=== PATIENT | female | born 1960 | race Caucasian/White ===

== ENCOUNTER 2016-12-02 09:06 | Emergency (ER) | payer OTHER ==
[2016-12-02 10:15] VITALS: BP 122/61
--- NOTE | 2016-12-02 16:57 | UC ---
Radha Shen Alok, scribed for Nette Ewing MD on 12/02/16 at 0949 . Respiratory Complaint HPI - HPI Summary HPI Summary: 56 y/o female presents to the with c/o coughing fits with dypnea, nasal congestion, and rhinorrhea with green sputum, beginning a week ago and worsening earlier today while at work prompting her visit to the today. Pt states she last took antibiotic Doxycycline about a month ago for similar symptoms the week of 10/24/16. Pt denies any fever or Hx of PNA. PMHx includes COPD years prior and pt does not do any treatment for COPD. - History of Current Complaint Chief Complaint: UCRespiratory Stated Complaint: COUGH SINUS ISSUE Time Seen by Provider: 12/02/16 09:45 Hx Obtained From: Patient ?: No Onset/Duration: Gradual Onset, Lasting Days, Still Present Timing: Constant Severity Initially: Moderate Severity Currently: Moderate Pain Intensity: 0 Pain Scale Used: 0-10 Numeric Character: Sputum Description: - Green Aggravating Factors: Nothing Alleviating Factors: Nothing Associated Signs And Symptoms: Positive: Dyspnea, Nasal Congestion, Sinus Discomfort. Negative: Fever - Risk Factors Pseudomonas Risk Factors: Chronic Lung Disease - Allergies/Home Medications Allergies/Adverse Reactions: Allergies Allergy/AdvReac Type Severity Reaction Status Date / Time Sulfa Antibiotics Allergy Intermediate hot/cold Verified 12/02/16 09:10 flashes/nausea PMH/Surg Hx/FS Hx/Imm Hx Endocrine History Of: Reports: Diabetes - II Denies: Thyroid Disease, Dyslipidemia Cardiovascular History Of: Denies: Cardiac Disorders, Hypertension Respiratory History Of: Reports: Bronchitis - IN THE PAST Denies: COPD, Asthma GI/ History Of: Denies: Gastroesophageal Reflux, Ulcer, Kidney Stones Neurological History Of: Denies: TIA, CVA, Dementia, Seizures, Migraine Psychological History Of: Denies: Anxiety, Depression, Bipolar Disorder, Schizophrenia, Post Traumatic Stress Disorder - Surgical History Surgical History: Yes Surgery Procedure, Year, and Place: csection x2, bilat cataract surgery. D&C 10/29/2015 - Family History Known Family History: Positive: Hypertension - mother, Diabetes - mother, Other - Yes - Lung Cancer (Father 55 y/o) Yes - Hep C (Mother's side) - Social History Occupation: Employed Full-time Alcohol Use: None Substance Use Type: None Smoking Status (MU): Former Smoker Type: Cigarettes Amount Used/How Often: 1/2 PPD Length of Time of Smoking/Using Tobacco: 30+ YEARS Have You Smoked in the Last Year: Yes When Did the Patient Quit Smoking/Using Tobacco: 08/2016 - Immunization History Most Recent Influenza Vaccination: Not UTD Most Recent Pneumonia Vaccination: NOT UTD Review of Systems Constitutional: Negative ENT: Sore Throat, Nasal Discharge Respiratory: Cough, Other - Dyspnea Cardiovascular: Negative All Other Systems Reviewed And Are Negative: Yes Physical Exam Triage Information Reviewed: Yes Appearance: No Pain Distress, Well-Nourished, Ill-Appearing Vital Signs: Initial Vital Signs Temp 97.2 F 12/02/16 09:13 Pulse 106 12/02/16 09:13 Resp 22 12/02/16 09:13 BP 151/77 12/02/16 09:13 Pulse Ox 98 12/02/16 09:13 Elevated BP and Tachycardia Noted. BP and pulse improved at discharge Vital Signs Reviewed: Yes Eyes: Positive: Conjunctiva Clear ENT: Positive: Normal ENT inspection, Pharynx normal, TMs normal. Negative: Muffled/hoarse voice Neck: Positive: Supple, Nontender, No Lymphadenopathy Respiratory: Positive: No respiratory distress, Decreased breath sounds. Negative: Wheezing Cardiovascular: Positive: No Murmur, Pulses Normal, Brisk Capillary Refill, Tachycardia Abdomen Description: Positive: Nontender, Soft Musculoskeletal: Positive: Strength Intact, ROM Intact Neurological: Positive: Alert, Muscle Tone Normal Psychological Exam: Normal Skin Exam: Normal UC Diagnostic Evaluation - Laboratory O2 Sat by Pulse Oximetry: 98 Respiratory Course/Dx - Course Course Of Treatment: istop consulted: no search items - Differential Dx/Diagnosis Differential Diagnosis/HQI/PQRI: Bronchitis - Acute, Lower Resp Infection, Pulmonary Embolism Provider Diagnoses: Primary diagnosis: Acute bronchitis. Secondary Diagnosis: High blood pressure without diagnosis of hypertension Discharge - Discharge Plan Condition: Stable Disposition: HOME Prescriptions: Albuterol HFA INHALER* [Ventolin HFA Inhaler*] 2 puff INH Q4H PRN #1 mdi PRN Reason: Cough Azithromycin TAB* [Zithromax TAB (Z-CANDIDA) 250 mg #6 tabs] 2 tab PO .TODAY, THEN 1 DAILY #1 candida guaiFENesin/CODIEN 100MG-10MG* [Robitussin AC 100Mg-10Mg*] 5 ml PO Q4H PRN #50 ml MDD 20ml PRN Reason: Cough predniSONE TAB* [Deltasone TAB*] 40 mg PO DAILY #10 tab Patient Education Materials: Acute Bronchitis (ED) Forms: *Work Release Referrals: Vernon Fajardo MD [Primary Care Provider] - 1 Week (for BP recheck and bronchitis eval ) The documentation as recorded by the Radha maza Alok accurately reflects the service I personally performed and the decisions made by , Nette Ewing MD.
== END 2016-12-02 10:17 | disposition home or self-care (01) ==
LOC: UCEAST 09:06
DX: J20.9 Acute bronchitis, unspecified (principal); R03.0 Elevated blood-pressure reading, without diagnosis of hypertension; Z98.42 Cataract extraction status, left eye; Z98.41 Cataract extraction status, right eye; Z88.2 Allergy status to sulfonamides; Z87.891 Personal history of nicotine dependence
CPT/HCPCS: 99212; G0463

== ENCOUNTER 2018-11-02 09:30 | Emergency (ER) | payer OTHER ==
--- NOTE | 2018-11-02 09:50 | ED ---
HPI Chest Pain - HPI Summary HPI Summary: Patient is a 58-year-old female smoker presenting to the ED with cough, congestion 1 week. She states she gets bronchitis proximal and once per year. Denies any fevers, sweats, chills. Cough is nonproductive. Denies any chest pain. She endorses a mild shortness of breath, worse with ambulation and exertion. Patient is a diabetic and takes metformin daily, however denies any other medications. She denies any urinary symptoms, abdominal pain, nausea, vomiting, diarrhea, constipation. She states she did not get the flu or Pneumovax this year. - History of Current Complaint Chief Complaint: EDChestPainROMI Time Seen by Provider: 11/02/18 09:48 Hx Obtained From: Patient Onset/Duration: Started Hours Ago Timing: Constant Initial Severity: Moderate Current Severity: Moderate Pain Intensity: 8 Pain Scale Used: 0-10 Numeric Aggravating Factor(s): Exertion Alleviating Factor(s): Rest Associated Signs and Symptoms: Positive: Nonproductive Cough. Negative: Chest Pain, Vision Changes, Anxiety, Recent Stress, Chills, Lightheadedness, Nausea, Nasal Congestion, Hoarseness, Sinus Discomfrot - Risk Factors Pulmonary Embolism Risk Factors: Smoking TAD Risk Factors: Smoking AMI/ACS Risk Factors: Smoking - Additional Pertinent History Primary Care Physician: Dr Fajardo. - Allergy/Home Medications Allergies/Adverse Reactions: Allergies Allergy/AdvReac Type Severity Reaction Status Date / Time Sulfa (Sulfonamide Allergy Nausea Verified 11/02/18 09:45 Antibiotics) PMH/Surg Hx/FS Hx/Imm Hx Previously Healthy: Yes Endocrine/Hematology History: Reports: Hx Diabetes - II Denies: Hx Thyroid Disease Cardiovascular History: Denies: Hx Hypertension, Other Cardiovascular Problems/Disorders Respiratory History: Denies: Hx Asthma, Hx Chronic Obstructive Pulmonary Disease (COPD) GI History: Denies: Hx Ulcer, Other GI Disorders History: Denies: Hx Kidney Stones Musculoskeletal History: Denies: Hx Arthritis, Other Musculoskeletal History Sensory History: Reports: Hx Cataracts - SUSANA, Hx Contacts or Glasses - GLASSES Denies: Hx Hearing Aid Opthamlomology History: Reports: Hx Cataracts - SUSANA, Hx Contacts or Glasses - GLASSES Neurological History: Denies: Hx Dementia, Hx Migraine, Hx Seizures, Hx Transient Ischemic Attacks (TIA), Other Neuro Impairments/Disorders Psychiatric History: Denies: Hx Anxiety, Hx Depression, Hx Schizophrenia, Hx Bipolar Disorder - Surgical History Surgery Procedure, Year, and Place: csection x2, bilat cataract surgery. D&C 10/29/2015 Hx Anesthesia Reactions: No Infectious Disease History: No Infectious Disease History: Reports: Hx Shingles - years ago Denies: Hx Clostridium Difficile, Hx Hepatitis, Hx Human Immunodeficiency Virus (HIV), Hx of Known/Suspected MRSA, Hx Tuberculosis, Hx Known/Suspected VRE , Hx Known/Suspected VRSA, History Other Infectious Disease, Traveled Outside the [place] in Last 30 Days - Family History Known Family History: Positive: Hypertension - mother, Diabetes - mother, Other - Yes - Lung Cancer (Father 55 y/o) Yes - Hep C (Mother's side) - Social History Alcohol Use: None Substance Use Type: Reports: None Smoking Status (MU): Former Smoker Type: Cigarettes Amount Used/How Often: 1/2 PPD Length of Time of Smoking/Using Tobacco: 30+ YEARS Have You Smoked in the Last Year: Yes Review of Systems Constitutional: Negative Negative: Fever, Chills, Fatigue, Skin Diaphoresis Negative: Palpitations, Chest Pain Positive: Shortness Of Breath, Cough Genitourinary: Negative Positive: no symptoms reported, see HPI Musculoskeletal: Negative Skin: Negative Negative: Headache, Weakness, Paresthesia, Numbness Negative: Anxious, Depressed All Other Systems Reviewed And Are Negative: Yes Physical Exam Triage Information Reviewed: Yes Vital Signs On Initial Exam: Initial Vitals Temp Pulse Resp BP Pulse Ox 99.9 F 106 17 155/70 94 11/02/18 09:42 11/02/18 09:42 11/02/18 09:42 11/02/18 09:42 11/02/18 09:42 Vital Signs Reviewed: Yes Appearance: Positive: Well-Appearing, Well-Nourished Skin: Positive: Skin Color Reflects Adequate Perfusion Head/Face: Positive: Normal Head/Face Inspection Eyes: Positive: EOMI, Conjunctiva Clear Neck: Positive: Supple, Nontender, No Lymphadenopathy Respiratory/Lung Sounds: Positive: Clear to Auscultation, Breath Sounds Present Cardiovascular: Positive: RRR, Pulses are Symmetrical in both Upper and Lower Extremities Musculoskeletal: Positive: Strength/ROM Intact Neurological: Positive: Normal, Sensory/Motor Intact, Speech Normal Psychiatric: Positive: Affect/Mood Appropriate AVPU Assessment: Alert Diagnostics - Vital Signs Vital Signs Temp Pulse Resp BP Pulse Ox 11/02/18 09:42 99.9 F 106 17 155/70 94 - Laboratory Result Diagrams: 11/02/18 10:05 11/02/18 10:05 Lab Statement: Any lab studies that have been ordered have been reviewed, and results considered in the medical decision making process. Chest Pain Course/Dx - Course Course Of Treatment: On physical examination, lungs are clear to auscultation bilaterally, RRR. Patient is nontoxic in appearing, however has a cough. Vital signs are stable. Patient is evaluated for cough and congestion times one week. Chest x-ray obtained. This was negative for any acute cardiopulmonary findings, however some interstitial markings were presenting a COPD exacerbation. Labs obtained are all WNL. Patient is given prednisone 50 mg once daily 5 days, azithromycin, 2 tablets today and then 1 tablet daily 5 days. She is also given albuterol inhaler and Tessalon Perles for symptoms. - Diagnoses Provider Diagnoses: Cough Discharge - Sign-Out/Discharge Documenting (check all that apply): Patient Departure Patient Received Moderate/Deep Sedation with Procedure: No - Discharge Plan Condition: Stable Disposition: HOME Prescriptions: Albuterol HFA INHALER* [Ventolin HFA Inhaler*] 1 puff INH Q4H PRN #1 mdi PRN Reason: Shortness Of Breath Azithromycin TAB* [Zithromax TAB (Z-CANDIDA) 250 mg #6 tabs] 2 tab PO .TODAY, THEN 1 DAILY #1 candida Benzonatate CAP* [Tessalon CAP*] 100 mg PO TID #21 cap predniSONE TAB* [Deltasone TAB*] 50 mg PO DAILY #5 tab MDD 1 Patient Education Materials: Acute Bronchitis (ED) Referrals: Vernon Fajardo MD [Primary Care Provider] - Additional Instructions: Prednisone 50 mg once daily 5 days, take in the morning Azithromycin, 2 tabs today and then 1 tablet daily 4 days Use the albuterol inhaler as needed for shortness of breath Robitussin [id number] as needed for cough Tessalon Perles up to 4 times daily for cough - Billing Disposition and Condition Condition: STABLE Disposition: Home
[2018-11-02] MEDS ORDERED: guaiFENesin/CODIEN 100MG-10MG* 5 ML UDC PO ONE (10:00)
[2018-11-02 10:17] LABS: ABS Basophils 0.1 10^3/ul (0-0.2); ABS Eosinophils 0 10^3/ul (0-0.6); ABS Lymphocytes 0.8 10^3/ul (1.0-4.8); ABS Monocytes 0.7 10^3/ul (0-0.8); ABS Neutrophils 4.9 10^3/ul (1.5-7.7); ABS Nucleated RBC 0 10^3/ul; Eosinophil % 0.1 %; Hematocrit 44 % (35-47); Hemoglobin 14.9 g/dl (12.0-16.0); Lymphocyte % 12.2 %; Mean Corpuscular HGB Conc 34 g/dl (31-36); Mean Corpuscular Hemoglobin 28 pg (27-31); Mean Corpuscular Volume 83 fL (80-97); Mean Platelet Volume 6.7 fL (7.4-10.4); Nucleated Red Blood Cells % 0.1; Platelet Count 204 10^3/ul (150-450); Red Blood Count 5.25 10^6/ul (4.00-5.40); Red Cell Distribution Width 15 % (10.5-15); White Blood Count 6.6 10^3/ul (3.5-10.8)
[2018-11-02 10:22] LABS: INR 0.94 (0.77-1.02)
[2018-11-02 10:36] LABS: Albumin/Globulin Ratio 1.1 (1-3); BUN/Creatinine Ratio 15.9 (8-20); EGFR African American 105.4 (>60); EGFR Non-African American 87.1 (>60); Globulin 3.5 g/dL (2-4); Magnesium 1.7 mg/dL (1.9-2.7); Potassium 4.1 mmol/L (3.5-5.0); Total Bilirubin 0.7 mg/dL (0.2-1.0); Total Protein 7.5 g/dL (6.4-8.9)
[2018-11-02 11:22] VITALS: BP 173/75
== END 2018-11-02 11:22 | disposition home or self-care (01) ==
LOC: ED 09:30
DX: R05 Cough (principal); Z87.891 Personal history of nicotine dependence; E11.9 Type 2 diabetes mellitus without complications; Z88.2 Allergy status to sulfonamides; Z79.84 Long term (current) use of oral hypoglycemic drugs
CPT/HCPCS: 36415; 71046; 80053; 82550; 83605; 83735; 84484; 85025; 85610; 93005; 99282; A9270-GY

== ENCOUNTER 2019-01-23 17:07 | Emergency (ER) | payer OTHER ==
[2019-01-23 17:16] VITALS: BP 140/61
--- NOTE | 2019-01-23 17:21 | UC ---
Throat Pain/Nasal Martinez HPI - HPI Summary HPI Summary: 58 yo female presents with sinus pain/pressure/congestion for the last 4-5 days with a productive cough the last 2 days. She is a former smoker. She has not been taking anything OTC for her symptoms as she cannot afford these currently. She denies fever, chills, sore throat, SOB, chest pain. - History of Current Complaint Chief Complaint: UCRespiratory Stated Complaint: SINUS AND CONGESTION Time Seen by Provider: 01/23/19 17:21 Hx Obtained From: Patient Onset/Duration: Gradual Onset Severity: Severe Pain Intensity: 9 Pain Scale Used: 0-10 Numeric - Allergies/Home Medications Allergies/Adverse Reactions: Allergies Allergy/AdvReac Type Severity Reaction Status Date / Time Sulfa (Sulfonamide Allergy Nausea Verified 01/23/19 17:16 Antibiotics) PMH/Surg Hx/FS Hx/Imm Hx Endocrine History: Diabetes Respiratory History: COPD, Asthma - Surgical History Surgical History: Yes Surgery Procedure, Year, and Place: csection x2, bilat cataract surgery. D&C 10/29/2015 - Family History Known Family History: Positive: Hypertension - mother, Diabetes - mother, Other - Yes - Lung Cancer (Father 55 y/o) Yes - Hep C (Mother's side) - Social History Alcohol Use: None Substance Use Type: None Smoking Status (MU): Former Smoker Type: Cigarettes Amount Used/How Often: 1/2 PPD Length of Time of Smoking/Using Tobacco: 30+ YEARS Have You Smoked in the Last Year: Yes When Did the Patient Quit Smoking/Using Tobacco: 08/2016 - Immunization History Most Recent Influenza Vaccination: Not UTD Most Recent Pneumonia Vaccination: NOT UTD Review of Systems All Other Systems Reviewed And Are Negative: Yes Constitutional: Positive: Negative Skin: Positive: Negative Eyes: Positive: Negative ENT: Positive: Nasal Discharge, Sinus Congestion, Sinus Pain/Tenderness Respiratory: Positive: Cough Cardiovascular: Positive: Negative Gastrointestinal: Positive: Negative Neurovascular: Positive: Negative Neurological: Positive: Negative Psychological: Positive: Negative Physical Exam - Summary Physical Exam Summary: GENERAL: NAD. WDWN. No pain distress. SKIN: No rashes, sores, lesions, or open wounds. HEENT: Head: AT/NC Eyes: EOM intact. Conjunctiva clear without inflammation or discharge. Ears: Hearing grossly normal. TMs intact, no bulging, erythema, or edema. Nose: Nasal mucosa mildly swollen and erythematous with yellow/ clear discharge. TTP maxillary and frontal sinus. Positive post nasal drip Throat: Posterior oropharynx without exudates, erythema, or tonsillar enlargement. Uvula midline. NECK: Supple. Nontender. No lymphadenopathy. CHEST: Mild wheezing throughout. No accessory muscle use. Breathing comfortably and in no distress. CV: RRR. Without m/r/g. Pulses intact. NEURO: Alert. PSYCH: Age appropriate behavior. Triage Information Reviewed: Yes Vital Signs: Initial Vital Signs Temp 97.4 F 01/23/19 17:10 Pulse 98 01/23/19 17:10 Resp 18 01/23/19 17:10 BP 140/61 01/23/19 17:10 Pulse Ox 98 01/23/19 17:10 Vital Signs Reviewed: Yes Throat Pain/Nasal Course/Dx - Course Course Of Treatment: Sinusitis. Bronchitis. Encouraged to use at home albuterol inhaler and, given her DM2 and smoking hx, will rx for augmentin at this time. - Differential Dx/Diagnosis Provider Diagnosis: Sinusitis, Bronchitis Discharge - Sign-Out/Discharge Documenting (check all that apply): Patient Departure All imaging exams completed and their final reports reviewed: No Studies - Discharge Plan Condition: Stable Disposition: HOME Prescriptions: Amoxicillin/Clavulanate TAB* [Augmentin TAB 875*] 875 mg PO BID #14 tab Patient Education Materials: Sinusitis (ED), Acute Bronchitis (ED) Referrals: Vernon Fajardo MD [Primary Care Provider] - Additional Instructions: If you develop a fever, shortness of breath, chest pain, new or worsening symptoms - please call your PCP or go to the ED immediately. Your blood pressure was high at todays visit. Please see your primary provider within 4 weeks for recheck and re-evaluation. - Billing Disposition and Condition Condition: STABLE Disposition: Home
--- NOTE | 2019-01-26 11:15 | UC ---
- Progress Note Progress Note: I RETURNED PATIENTS PHONE CALL. NAME AND DATE OF VERIFIED. SHE REPORTS HAVING COPIOUS WATERY DIARRHEA SINCE STARTING AUGMENTIN 2 DAYS AGO. IS REQUESTING AN ALTERNATE ANTIBIOTIC. PATIENT'S PROGRESS NOTE FROM HER VISIT REVIEWED. WILL CHANGE FROM AUGMENTIN TO REGULAR AMOXICILLIN 3 TIMES A DAY. PRESCRIPTION SENT TO [facility]. Course/Dx - Diagnoses Provider Diagnoses: Sinusitis, Bronchitis Discharge - Sign-Out/Discharge Documenting (check all that apply): Post-Discharge Follow Up All imaging exams completed and their final reports reviewed: No Studies - Discharge Plan Condition: Stable Disposition: HOME Prescriptions: Amoxicillin PO (*) [Amoxicillin 500 MG CAP*] 500 mg PO TID #21 cap Patient Education Materials: Sinusitis (ED), Acute Bronchitis (ED) Referrals: Vernon Fajardo MD [Primary Care Provider] - Additional Instructions: If you develop a fever, shortness of breath, chest pain, new or worsening symptoms - please call your PCP or go to the ED immediately. Your blood pressure was high at todays visit. Please see your primary provider within 4 weeks for recheck and re-evaluation. - Billing Disposition and Condition Condition: STABLE Disposition: Home
== END 2019-01-23 17:35 | disposition home or self-care (01) ==
LOC: UCEAST 17:07
DX: J32.9 Chronic sinusitis, unspecified (principal); J40 Bronchitis, not specified as acute or chronic; E11.9 Type 2 diabetes mellitus without complications; J44.9 Chronic obstructive pulmonary disease, unspecified; Z88.2 Allergy status to sulfonamides; Z87.891 Personal history of nicotine dependence
CPT/HCPCS: 99212; G0463

== ENCOUNTER 2020-11-27 09:30 | Inpatient (IN) ==
[2020-11-27] MEDS ORDERED: Ondansetron 4 mg VIAL 2 MG/ML 2 ml VIAL IV ONE (10:01)
[2020-11-27] MEDS ORDERED: Morphine 4 MG/ML VIAL (1 ml) IV ONE (10:01)
[2020-11-27 10:32] LABS: ABS Lymphocytes 0.8 10^3/ul (1.0-4.8); ABS Monocytes 0.5 10^3/ul (0-0.8); Eosinophil % 0.1 %; Hematocrit 21 % (35-47); Lymphocyte % 5.6 %; Mean Corpuscular HGB Conc 29 g/dL (31-36); Mean Corpuscular Hemoglobin 16 pg (27-31); Mean Corpuscular Volume 56 fL (80-97); Mean Platelet Volume 7.9 fL (7.4-10.4); Platelet Count 360 10^3/uL (150-450); Red Blood Count 3.69 10^6 /uL (3.70-4.87); Red Cell Distribution Width 19 % (10-15); White Blood Count 14.3 10^3/uL (3.5-10.8)
[2020-11-27 10:47] LABS: ALT 5 U/L (7-52); AST 7 U/L (13-39); Albumin 3.8 g/dL (3.2-5.2); Albumin/Globulin Ratio 1.2 (1-3); Alkaline Phosphatase 53 U/L (34-104); Anion Gap 6 mmol/L (2-11); Blood Urea Nitrogen 12 mg/dL (6-24); C Reactive Protein 50.88 mg/L (<8.01); CO2 Carbon Dioxide 25 mmol/L (22-32); Calcium 8.5 mg/dL (8.6-10.3); Chloride 103 mmol/L (101-111); EGFR African American 88.2 (>60); EGFR Non-African American 72.9 (>60); Globulin 3.2 g/dL (2-4); Glucose 158 mg/dL (70-100); Lipase < 10 U/L (11.0-82.0); Magnesium 1.8 mg/dL (1.9-2.7); Potassium 4.4 mmol/L (3.5-5.0); Sodium 134 mmol/L (135-145)
[2020-11-27 11:13] LABS: Microcytosis 3+
[2020-11-27 11:14] LABS: Polychromasia 1+
[2020-11-27] MEDS ORDERED: Iodixanol (CONTRAST) 320 MG/ML 100 ML SDV IV ONE (11:27)
[2020-11-27] MEDS ORDERED: Magnesium Sulfate 2 gm BAG 2 GM/50 ML BAG IVPB ONE (11:28)
[2020-11-27] MEDS ORDERED: Famotidine IV 10 MG/ML 2 ml VIAL (20 mg) IV SLOW PU ONE (12:10)
[2020-11-27] MEDS ORDERED: Piperacillin/Tazobac ADVAN 3.375 GM in NS 0.9% 100 ml BAG 100 ML IV ONE ×2 (12:19→14:06)
[2020-11-27] MEDS ORDERED: NS 0.9% 1000 ml BAG 1,000 ML IV ONE (12:20)
[2020-11-27] MEDS ORDERED: NS 0.9% 1000 ml BAG 1,000 ML IV SCH (14:00)
[2020-11-27] MEDS ORDERED: Heparin 5000 UNITS/ML 1 mL VIAL SUBCUT SCH (14:00)
[2020-11-27] MEDS ORDERED: Ondansetron 4 mg VIAL 2 MG/ML 2 ml VIAL IV PRN (14:14)
[2020-11-27] MEDS ORDERED: Dextrose 50% Syringe 50 ml 25 GM/50 ML SYRINGE IV PUSH PRN (14:55)
[2020-11-27] MEDS ORDERED: Zosyn per Pharmacy NOTE FOLLOW UP SCH (15:00)
[2020-11-27] MEDS ORDERED: Albuterol/Ipratropium NEB.SOL (2.5/0.5 MG) 3 ML NEB.SOLN INH PRN (15:02)
[2020-11-27] MEDS: ZOSYN 3.375 GM Q8H per EXTENDED INFUSION IV SCH (18:39)
[2020-11-27 19:11] LABS: TSH Ultra Thyroid Stim Horm 1.11 mcIU/mL (0.34-5.60)
[2020-11-27 19:25] LABS: Hematocrit 27 % (35-47); Hemoglobin 8.1 g/dL (12.0-16.0)
[2020-11-28 00:59] LABS: Hematocrit 27 % (35-47)
[2020-11-28] MEDS: ZOSYN 3.375 GM Q8H per EXTENDED INFUSION IV SCH ×3 (01:33→17:30)
[2020-11-28 07:05] LABS: Total Iron Binding Capacity 491 mcg/dL (250-450); Transferrin 351 mg/dL (203-362)
[2020-11-28 07:09] LABS: % Iron Saturation 4 % (15-55); Iron < 20 ug/dL (50-212); Unsaturated Iron Binding < 476 ug/dL
[2020-11-28 07:19] LABS: Ferritin 40.9 ng/mL (11-307)
[2020-11-28] MEDS: Enoxaparin 40 MG/0.4 ML SYR SUBCUT SCH (08:56)
[2020-11-28 09:57] LABS: BUN/Creatinine Ratio 18.1 (8-20); Calcium 8.2 mg/dL (8.6-10.3); EGFR African American 99.6 (>60); EGFR Non-African American 82.3 (>60); Potassium 4.3 mmol/L (3.5-5.0)
[2020-11-28 10:05] LABS: Hematocrit 28 % (35-47); Hemoglobin 8.2 g/dL (12.0-16.0); Mean Corpuscular HGB Conc 29 g/dL (31-36); Mean Corpuscular Hemoglobin 19 pg (27-31); Mean Corpuscular Volume 65 fL (80-97); Platelet Count 304 10^3/uL (150-450); Red Blood Count 4.36 10^6 /uL (3.70-4.87); White Blood Count 19.8 10^3/uL (3.5-10.8)
[2020-11-28 10:39] LABS: ABS Basophils 0.1 10^3/ul (0-0.2); ABS Monocytes 0.6 10^3/ul (0-0.8); ABS Neutrophils 18.2 10^3/ul (1.5-7.7); Lymphocyte % 4.9 %; Red Cell Distribution Width 27 % (10-15)
[2020-11-28 10:40] LABS: Microcytosis 3+
[2020-11-28 10:41] LABS: Polychromasia 1+
[2020-11-28 11:20] LABS: Vitamin B12 471 pg/mL (180-914)
[2020-11-29] MEDS: ZOSYN 3.375 GM Q8H per EXTENDED INFUSION IV SCH ×3 (02:27→17:30)
[2020-11-29 06:09] LABS: Urine Appearance Cloudy; Urine Bilirubin Negative (Negative); Urine Blood Negative (Negative); Urine Color Amber; Urine Glucose Negative (Negative); Urine Ketones Negative (Negative); Urine Nitrite Negative (Negative); Urine Protein 2+(100 mg/dL) (Negative); Urine Specific Gravity 1.029 (1.010-1.030); Urine Urobilinogen Negative (Negative)
[2020-11-29 06:22] LABS: Urine Bacteria 1+ (Absent); Urine Red Blood Cell 3+(>10/hpf) (Absent); Urine Squamous Epithelial Cell Present (Absent); Urine White Blood Cell 3+(>20/hpf) (Absent)
[2020-11-29 06:27] LABS: ABS Basophils 0.1 10^3/ul (0-0.2); ABS Lymphocytes 0.8 10^3/ul (1.0-4.8); Eosinophil % 0.1 %; Hematocrit 26 % (35-47); Hemoglobin 7.9 g/dL (12.0-16.0); Lymphocyte % 4.7 %; Mean Corpuscular HGB Conc 30 g/dL (31-36); Mean Corpuscular Hemoglobin 19 pg (27-31); Mean Corpuscular Volume 62 fL (80-97); Platelet Count 387 10^3/uL (150-450); Red Blood Count 4.26 10^6 /uL (3.70-4.87); Red Cell Distribution Width 28 % (10-15); White Blood Count 16.9 10^3/uL (3.5-10.8)
[2020-11-29 07:01] LABS: BUN/Creatinine Ratio 20.8 (8-20); Calcium 8.4 mg/dL (8.6-10.3); EGFR African American 92.2 (>60); EGFR Non-African American 76.2 (>60); Potassium 3.7 mmol/L (3.5-5.0)
[2020-11-29] MEDS: Enoxaparin 40 MG/0.4 ML SYR SUBCUT SCH (08:18)
[2020-11-30] MEDS: ZOSYN 3.375 GM Q8H per EXTENDED INFUSION IV SCH ×3 (01:21→17:13)
[2020-11-30] MEDS: Enoxaparin 40 MG/0.4 ML SYR SUBCUT SCH (08:58)
[2020-11-30 10:18] LABS: ABS Eosinophils 0.1 10^3/ul (0-0.6); ABS Lymphocytes 0.9 10^3/ul (1.0-4.8); ABS Neutrophils 11.3 10^3/ul (1.5-7.7); Eosinophil % 0.5 %; Hematocrit 25 % (35-47); Hemoglobin 7.4 g/dL (12.0-16.0); Lymphocyte % 6.5 %; Mean Corpuscular HGB Conc 30 g/dL (31-36); Mean Corpuscular Hemoglobin 19 pg (27-31); Mean Corpuscular Volume 62 fL (80-97); Mean Platelet Volume 6.2 fL (7.4-10.4); Platelet Count 404 10^3/uL (150-450); Red Blood Count 4.01 10^6 /uL (3.70-4.87); Red Cell Distribution Width 27 % (10-15); White Blood Count 13.3 10^3/uL (3.5-10.8)
[2020-11-30 10:32] LABS: Calcium 8.1 mg/dL (8.6-10.3); EGFR African American 112.1 (>60); EGFR Non-African American 92.7 (>60); Potassium 3.6 mmol/L (3.5-5.0)
[2020-11-30 10:52] LABS: Microcytosis 2+
[2020-11-30] MEDS ORDERED: Iohexol 300 (CONTRAST) 10 ML SDV IV ONE (15:34)
[2020-12-01] MEDS: ZOSYN 3.375 GM Q8H per EXTENDED INFUSION IV SCH ×3 (01:19→18:19)
[2020-12-01 07:28] LABS: ABS Lymphocytes 0.8 10^3/ul (1.0-4.8); ABS Monocytes 0.8 10^3/ul (0-0.8); ABS Neutrophils 6.9 10^3/ul (1.5-7.7); Eosinophil % 0.5 %; Hematocrit 24 % (35-47); Hemoglobin 7.3 g/dL (12.0-16.0); Mean Corpuscular HGB Conc 30 g/dL (31-36); Mean Corpuscular Hemoglobin 19 pg (27-31); Mean Corpuscular Volume 62 fL (80-97); Mean Platelet Volume 5.8 fL (7.4-10.4); Platelet Count 344 10^3/uL (150-450); Red Blood Count 3.89 10^6 /uL (3.70-4.87); Red Cell Distribution Width 27 % (10-15); White Blood Count 8.5 10^3/uL (3.5-10.8)
[2020-12-01 07:36] LABS: BUN/Creatinine Ratio 17.2 (8-20); Calcium 8.2 mg/dL (8.6-10.3); EGFR African American 114.1 (>60); EGFR Non-African American 94.3 (>60); Potassium 3.5 mmol/L (3.5-5.0)
[2020-12-01] MEDS: Enoxaparin 40 MG/0.4 ML SYR SUBCUT SCH (10:20)
[2020-12-01] MEDS ORDERED: PEG 3000 GI LAVAGE 1 GALLON PO ONE ×2 (13:19→16:00)
[2020-12-02] MEDS: ZOSYN 3.375 GM Q8H per EXTENDED INFUSION IV SCH ×3 (02:00→18:12)
[2020-12-02 06:21] LABS: ABS Eosinophils 0.1 10^3/ul (0-0.6); ABS Monocytes 0.7 10^3/ul (0-0.8); ABS Neutrophils 6.5 10^3/ul (1.5-7.7); Eosinophil % 1.2 %; Hematocrit 25 % (35-47); Hemoglobin 7.5 g/dL (12.0-16.0); Lymphocyte % 12.1 %; Mean Corpuscular HGB Conc 31 g/dL (31-36); Mean Corpuscular Hemoglobin 19 pg (27-31); Mean Corpuscular Volume 62 fL (80-97); Mean Platelet Volume 6.1 fL (7.4-10.4); Platelet Count 422 10^3/uL (150-450); Red Blood Count 3.97 10^6 /uL (3.70-4.87); Red Cell Distribution Width 27 % (10-15); White Blood Count 8.3 10^3/uL (3.5-10.8)
[2020-12-02 06:41] LABS: BUN/Creatinine Ratio 13.8 (8-20); Calcium 8.2 mg/dL (8.6-10.3); EGFR African American 127.9 (>60); EGFR Non-African American 105.7 (>60); Potassium 3.3 mmol/L (3.5-5.0)
[2020-12-02 08:41] LABS: Magnesium 2.1 mg/dL (1.9-2.7)
[2020-12-02] MEDS ORDERED: Potassium Chlor 10 meq TAB PO ONE (08:46)
[2020-12-02] MEDS: Enoxaparin 40 MG/0.4 ML SYR SUBCUT SCH (10:17)
[2020-12-02] MEDS ORDERED: Midazolam 10 mg/10 ml VIAL 1 mg/ml 10 ml VIAL (10 mg) ONE (12:51)
[2020-12-02] MEDS ORDERED: fentaNYL 100 mcg/2 ml 50 MCG/ML VIAL ONE (12:51)
[2020-12-02] MEDS ORDERED: Lorazepam PYXIS KEY PRN (18:02)
[2020-12-02] MEDS ORDERED: LORazepam 2 mg VIAL 1 ml IV PUSH ONE (18:02)
[2020-12-03] MEDS: ZOSYN 3.375 GM Q8H per EXTENDED INFUSION IV SCH ×3 (01:58→17:49)
[2020-12-03 06:34] LABS: ABS Eosinophils 0.1 10^3/ul (0-0.6); ABS Lymphocytes 1.3 10^3/ul (1.0-4.8); ABS Monocytes 0.8 10^3/ul (0-0.8); ABS Neutrophils 7.7 10^3/ul (1.5-7.7); Eosinophil % 1.3 %; Hematocrit 23 % (35-47); Hemoglobin 6.9 g/dL (12.0-16.0); Lymphocyte % 13.1 %; Mean Corpuscular HGB Conc 31 g/dL (31-36); Mean Corpuscular Hemoglobin 19 pg (27-31); Mean Corpuscular Volume 61 fL (80-97); Mean Platelet Volume 5.9 fL (7.4-10.4); Platelet Count 388 10^3/uL (150-450); Red Blood Count 3.66 10^6 /uL (3.70-4.87); Red Cell Distribution Width 26 % (10-15)
[2020-12-03 06:40] LABS: BUN/Creatinine Ratio 18.5 (8-20); Calcium 8.1 mg/dL (8.6-10.3); EGFR African American 138.9 (>60); EGFR Non-African American 114.8 (>60); Potassium 3.7 mmol/L (3.5-5.0)
[2020-12-03] MEDS ORDERED: Furosemide 20 mg/2 ml IV VIAL IV ONE (08:44)
[2020-12-03] MEDS: Enoxaparin 40 MG/0.4 ML SYR SUBCUT SCH (08:49)
[2020-12-03] MEDS ORDERED: Iohexol 300 (CONTRAST) 10 ML SDV IV ONE (13:26)
[2020-12-03 23:21] LABS: Hematocrit 31 % (35-47); Hemoglobin 9.6 g/dL (12.0-16.0)
[2020-12-04] MEDS: ZOSYN 3.375 GM Q8H per EXTENDED INFUSION IV SCH ×3 (01:32→18:22)
[2020-12-04 07:16] LABS: ABS Basophils 0.1 10^3/ul (0-0.2); ABS Eosinophils 0.2 10^3/ul (0-0.6); ABS Lymphocytes 1.3 10^3/ul (1.0-4.8); ABS Monocytes 0.7 10^3/ul (0-0.8); ABS Neutrophils 6.6 10^3/ul (1.5-7.7); Eosinophil % 1.9 %; Hematocrit 29 % (35-47); Lymphocyte % 14.9 %; Mean Corpuscular HGB Conc 31 g/dL (31-36); Mean Corpuscular Hemoglobin 20 pg (27-31); Mean Corpuscular Volume 65 fL (80-97); Platelet Count 368 10^3/uL (150-450); Red Blood Count 4.46 10^6 /uL (3.70-4.87); Red Cell Distribution Width 28 % (10-15)
[2020-12-04 07:22] LABS: BUN/Creatinine Ratio 10.7 (8-20); Calcium 8.1 mg/dL (8.6-10.3); EGFR African American 133.2 (>60); EGFR Non-African American 110.1 (>60); Potassium 3.6 mmol/L (3.5-5.0)
[2020-12-04] MEDS: Enoxaparin 40 MG/0.4 ML SYR SUBCUT SCH (08:35)
[2020-12-04 13:39] LABS: ABS Basophils 0.1 10^3/ul (0-0.2); ABS Eosinophils 0.1 10^3/ul (0-0.6); ABS Lymphocytes 1.4 10^3/ul (1.0-4.8); ABS Monocytes 0.8 10^3/ul (0-0.8); ABS Neutrophils 8.9 10^3/ul (1.5-7.7); Eosinophil % 1.2 %; Hematocrit 27 % (35-47); Hemoglobin 8.2 g/dL (12.0-16.0); Lymphocyte % 12.7 %; Mean Corpuscular HGB Conc 31 g/dL (31-36); Mean Corpuscular Hemoglobin 20 pg (27-31); Mean Corpuscular Volume 64 fL (80-97); Nucleated Red Blood Cells % 0.1; Platelet Count 436 10^3/uL (150-450); Red Blood Count 4.22 10^6 /uL (3.70-4.87); Red Cell Distribution Width 29 % (10-15); White Blood Count 11.4 10^3/uL (3.5-10.8)
[2020-12-04] MEDS ORDERED: Furosemide 20 mg/2 ml IV VIAL IV ONE (15:16)
[2020-12-05] MEDS: ZOSYN 3.375 GM Q8H per EXTENDED INFUSION IV SCH ×3 (01:30→18:33)
[2020-12-05 05:30] LABS: ABS Basophils 0.1 10^3/ul (0-0.2); ABS Eosinophils 0.2 10^3/ul (0-0.6); ABS Lymphocytes 1.3 10^3/ul (1.0-4.8); ABS Monocytes 0.8 10^3/ul (0-0.8); ABS Neutrophils 6.6 10^3/ul (1.5-7.7); Eosinophil % 2.2 %; Hematocrit 29 % (35-47); Hemoglobin 9.1 g/dL (12.0-16.0); Lymphocyte % 14.3 %; Mean Corpuscular HGB Conc 32 g/dL (31-36); Mean Corpuscular Hemoglobin 21 pg (27-31); Mean Corpuscular Volume 65 fL (80-97); Mean Platelet Volume 6.1 fL (7.4-10.4); Platelet Count 380 10^3/uL (150-450); Red Blood Count 4.44 10^6 /uL (3.70-4.87); Red Cell Distribution Width 29 % (10-15); White Blood Count 8.9 10^3/uL (3.5-10.8)
[2020-12-05 05:49] LABS: BUN/Creatinine Ratio 11.1 (8-20); Calcium 8.2 mg/dL (8.6-10.3); EGFR African American 138.9 (>60); EGFR Non-African American 114.8 (>60); Potassium 3.7 mmol/L (3.5-5.0)
[2020-12-05] MEDS ORDERED: Bupivacaine 0.25% SDV 30 ML ONE (10:05)
[2020-12-05] MEDS ORDERED: Ketamine HCL 50 mg/ml 10 ml VIAL (500 MG) ONE (10:38)
[2020-12-05] MEDS ORDERED: Midazolam 2 mg/2 ml VIAL 1 mg/ml 2 ml VIAL (2 mg) ONE (10:38)
[2020-12-05] MEDS ORDERED: Rocuronium 50 mg VIAL 10 mg/ml 5 ml VIAL (50 mg) ONE ×2 (10:38→12:00)
[2020-12-05] MEDS ORDERED: fentaNYL 100 mcg/2 ml 50 MCG/ML VIAL ONE (10:38)
[2020-12-05] MEDS ORDERED: Etomidate 20 mg/10 ml 2 MG/ML 10 ml VIAL ONE (10:39)
[2020-12-05] MEDS ORDERED: EPHEDrine (Pressors) 50 MG/ML VIAL ONE (13:21)
[2020-12-05] MEDS ORDERED: Dexamethasone IV 4 MG/ML VIAL 1 ml VIAL ONE (13:22)
[2020-12-05] MEDS ORDERED: Bupivacaine 0.5% SDV PF 30ML VIAL ONE (13:22)
[2020-12-05] MEDS ORDERED: HYDROmorphone 1 MG/1 ML SYRINGE ONE (15:36)
[2020-12-05] MEDS ORDERED: Naloxone 0.4 mg VIAL 0.4 mg/ml 1 ml VIAL IV PUSH PRN (15:43)
[2020-12-05] MEDS ORDERED: Ondansetron 4 mg VIAL 2 MG/ML 2 ml VIAL ONE (15:55)
[2020-12-05] MEDS ORDERED: HYDROmorphone PCA 20 MG/20 ML PCA.SYRING PCA SCH (16:00)
[2020-12-05] MEDS ORDERED: Naloxone 0.4 mg VIAL 0.4 mg/ml 1 ml VIAL IV PRN (16:03)
[2020-12-05] MEDS ORDERED: HYDROmorphone 1 MG/1 ML SYRINGE IV PRN (16:03)
[2020-12-05] MEDS: Lactated Ringers 1000 ml BAG 1,000 ML IV SCH (17:20)
[2020-12-05 21:15] LABS: Hematocrit 36 % (35-47); Hemoglobin 10.9 g/dL (12.0-16.0)
[2020-12-06] MEDS: ZOSYN 3.375 GM Q8H per EXTENDED INFUSION IV SCH ×2 (02:07→10:36)
[2020-12-06] MEDS: Lactated Ringers 1000 ml BAG 1,000 ML IV SCH (02:09)
[2020-12-06 05:12] LABS: BUN/Creatinine Ratio 11.5 (8-20); EGFR African American 65.2 (>60); EGFR Non-African American 53.9 (>60); Potassium 4.2 mmol/L (3.5-5.0)
[2020-12-06 05:22] LABS: ABS Lymphocytes 0.7 10^3/ul (1.0-4.8); ABS Monocytes 0.6 10^3/ul (0-0.8); Hematocrit 33 % (35-47); Hemoglobin 9.8 g/dL (12.0-16.0); Lymphocyte % 4.1 %; Mean Corpuscular HGB Conc 30 g/dL (31-36); Mean Corpuscular Hemoglobin 20 pg (27-31); Mean Corpuscular Volume 66 fL (80-97); Mean Platelet Volume 8.1 fL (7.4-10.4); Platelet Count 431 10^3/uL (150-450); Red Blood Count 4.93 10^6 /uL (3.70-4.87); Red Cell Distribution Width 29 % (10-15); White Blood Count 16.3 10^3/uL (3.5-10.8)
[2020-12-06] MEDS ORDERED: NS 0.9% 1000 ml BAG 1,000 ML IV SCH ×2 (09:15→20:24)
[2020-12-06] MEDS ORDERED: Senna TAB 8.6 mg TAB PO PRN (10:20)
[2020-12-06] MEDS ORDERED: NS 0.9% 500 ml BAG 500 ML IV ONE ×2 (15:06→20:22)
[2020-12-06 16:25] LABS: Urine Appearance Cloudy; Urine Bilirubin Negative (Negative); Urine Blood 1+ (Negative); Urine Color Amber; Urine Glucose Negative (Negative); Urine Ketones Negative (Negative); Urine Nitrite Negative (Negative); Urine Protein 1+(30 mg/dL) (Negative); Urine Specific Gravity 1.029 (1.010-1.030); Urine Urobilinogen Negative (Negative)
[2020-12-06 16:29] LABS: Urine Bacteria Absent (Absent); Urine Red Blood Cell 3+(>10/hpf) (Absent); Urine Squamous Epithelial Cell Present (Absent); Urine White Blood Cell 3+(>20/hpf) (Absent)
[2020-12-06] MEDS: Enoxaparin 40 MG/0.4 ML SYR SUBCUT SCH (16:33)
[2020-12-06 19:49] LABS: BUN/Creatinine Ratio 16.2 (8-20); Calcium 7.9 mg/dL (8.6-10.3); EGFR African American 56.9 (>60); Potassium 4.1 mmol/L (3.5-5.0)
[2020-12-07] MEDS ORDERED: HYDROmorphone 0.5 MG/0.5 ML SYRINGE IV SLOW PU PRN (10:05)
[2020-12-07 11:51] LABS: ABS Basophils 0.1 10^3/ul (0-0.2); ABS Eosinophils 0.1 10^3/ul (0-0.6); ABS Lymphocytes 1.5 10^3/ul (1.0-4.8); ABS Monocytes 0.9 10^3/ul (0-0.8); Eosinophil % 0.8 %; Hematocrit 30 % (35-47); Lymphocyte % 9.3 %; Mean Corpuscular HGB Conc 30 g/dL (31-36); Mean Corpuscular Hemoglobin 20 pg (27-31); Mean Corpuscular Volume 66 fL (80-97); Mean Platelet Volume 6.1 fL (7.4-10.4); Platelet Count 490 10^3/uL (150-450); Red Blood Count 4.56 10^6 /uL (3.70-4.87); Red Cell Distribution Width 29 % (10-15); White Blood Count 15.6 10^3/uL (3.5-10.8)
[2020-12-07 12:00] LABS: BUN/Creatinine Ratio 16.3 (8-20); Calcium 7.8 mg/dL (8.6-10.3); EGFR African American 65.2 (>60); EGFR Non-African American 53.9 (>60); Potassium 4.2 mmol/L (3.5-5.0)
[2020-12-07] MEDS: Enoxaparin 40 MG/0.4 ML SYR SUBCUT SCH (15:59)
[2020-12-08 10:15] LABS: BUN/Creatinine Ratio 16.3 (8-20); Calcium 8.3 mg/dL (8.6-10.3); EGFR African American 75.1 (>60); EGFR Non-African American 62.1 (>60)
[2020-12-08 10:28] LABS: Hematocrit 30 % (35-47); Hemoglobin 9.2 g/dL (12.0-16.0); Mean Corpuscular HGB Conc 31 g/dL (31-36); Mean Corpuscular Hemoglobin 20 pg (27-31); Mean Corpuscular Volume 65 fL (80-97); Mean Platelet Volume 6.2 fL (7.4-10.4); Platelet Count 511 10^3/uL (150-450); Red Blood Count 4.53 10^6 /uL (3.70-4.87); Red Cell Distribution Width 29 % (10-15); White Blood Count 12.4 10^3/uL (3.5-10.8)
[2020-12-08 11:25] LABS: ABS Basophils 0.1 10^3/ul (0-0.2); ABS Eosinophils 0.1 10^3/ul (0-0.6); ABS Lymphocytes 1.2 10^3/ul (1.0-4.8); ABS Monocytes 0.7 10^3/ul (0-0.8); ABS Neutrophils 10.4 10^3/ul (1.5-7.7); Eosinophil % 0.6 %; Lymphocyte % 9.8 %
[2020-12-08 11:31] VITALS: BP 133/47
== END 2020-12-08 15:03 | disposition home health service (06) | DRG 221 ==
LOC: ED 09:30 → MED 13:58 → SSU 12-05 17:08
PROVIDERS: ADMIT Internal Medicine; ATTEND Internal Medicine

== ENCOUNTER 2022-05-05 14:16 | Inpatient (IN) ==
[2022-05-05] MEDS ORDERED: Ondansetron ODT 4 mg TAB 4 MG TAB PO ONE (14:23)
[2022-05-05] MEDS ORDERED: NS 0.9% 1000 ml BAG 1,000 ML IV ONE (17:37)
[2022-05-05] MEDS ORDERED: Ondansetron 4 mg VIAL 2 MG/ML 2 ml VIAL IV ONE (17:50)
[2022-05-05 18:22] LABS: ABS Lymphocytes 1.1 10^3/ul (1.0-4.8); ABS Monocytes 0.3 10^3/ul (0-0.8); ABS Neutrophils 5.5 10^3/ul (1.5-7.7); Eosinophil % 0.4 %; Hematocrit 29 % (35-47); Hemoglobin 9.7 g/dL (12.0-16.0); Lymphocyte % 15.4 %; Mean Corpuscular HGB Conc 33 g/dL (31-36); Mean Corpuscular Hemoglobin 24 pg (27-31); Mean Corpuscular Volume 72 fL (80-97); Mean Platelet Volume 5.9 fL (7.4-10.4); Platelet Count 161 10^3/uL (150-450); Red Blood Count 4.09 10^6 /uL (3.70-4.87); Red Cell Distribution Width 23 % (10-15); White Blood Count 6.9 10^3/uL (3.5-10.8)
[2022-05-05 18:43] LABS: Urine Appearance Clear; Urine Color Yellow; Urine Glucose Negative (Negative); Urine Ketones 3+ (80mg/dL) (Negative)
[2022-05-05 18:44] LABS: Urine Blood Negative (Negative); Urine Nitrite Negative (Negative); Urine Protein 2+ (100 mg/dL) (Negative); Urine Specific Gravity 1.025 (1.005-1.030); Urine Urobilinogen 1.0 (Negative) (Negative)
[2022-05-05 18:49] LABS: Albumin 3.3 g/dL (3.2-5.2); Albumin/Globulin Ratio 1.3 (1-3); C Reactive Protein 23.44 mg/L (<8.01); Calcium 8.4 mg/dL (8.6-10.3); Globulin 2.6 g/dL (2-4); Magnesium 1.9 mg/dL (1.9-2.7); Potassium 2.9 mmol/L (3.5-5.0); Total Bilirubin 0.5 mg/dL (0.2-1.0); Total Protein 5.9 g/dL (6.4-8.9); eGFR CKD-EPI 87.2 (>60)
[2022-05-05 18:51] LABS: Urine Bacteria Absent (Absent); Urine Red Blood Cell Trace(0-2/hpf) (Absent); Urine Squamous Epithelial Cell Present (Absent); Urine White Blood Cell 1+(6-10/hpf) (Absent)
[2022-05-05] MEDS ORDERED: NS 0.9% w/ 20 Meq KCL 1000 ml 1,000 ML IV SCH (19:00)
[2022-05-05] MEDS: KCL 20 MEQ/100 ML IVPREMIX 20 MEQ/100 ML BAG IV SCH ×2 (19:43→22:44)
[2022-05-05] MEDS ORDERED: Iodixanol (CONTRAST) 320 MG/ML 100 ML SDV IV ONE (20:50)
[2022-05-06] MEDS ORDERED: Enoxaparin 40 MG/0.4 ML SYR SUBCUT SCH ×2 (03:00→11:00)
[2022-05-06] MEDS ORDERED: Ondansetron 4 mg VIAL 2 MG/ML 2 ml VIAL IV PRN (03:08)
[2022-05-06] MEDS ORDERED: Remdesivir 100 mg Vial 200 MG in NS 0.9% 250 ml 210 ML IV ONE (03:16)
[2022-05-06] MEDS ORDERED: Dextrose 50% Syringe 50 ml 25 GM/50 ML SYRINGE IV PUSH PRN (03:19)
[2022-05-06 04:28] LABS: INR 1.66 (0.89-1.11)
[2022-05-06 04:50] LABS: Albumin 2.9 g/dL (3.2-5.2); Albumin/Globulin Ratio 1.3 (1-3); Calcium 7.7 mg/dL (8.6-10.3); Globulin 2.2 g/dL (2-4); Potassium 3.4 mmol/L (3.5-5.0); Total Bilirubin 0.5 mg/dL (0.2-1.0); Total Protein 5.1 g/dL (6.4-8.9); eGFR CKD-EPI 96.1 (>60)
[2022-05-06 05:47] LABS: Magnesium 1.8 mg/dL (1.9-2.7)
[2022-05-06] MEDS ORDERED: Magnesium Sulfate 2 gm BAG 2 GM/50 ML BAG IVPB ONE (05:52)
[2022-05-06] MEDS: KCL 10 MEQ/50 ML IVPREMIX 10 MEQ/50 ML BAG IV SCH ×3 (09:31→12:00)
[2022-05-06] MEDS: metroNIDAZOLE IV 500 MG/100ML 500 MG/100 ML BAG IVPB SCH ×2 (11:37→20:50)
[2022-05-07] MEDS: metroNIDAZOLE IV 500 MG/100ML 500 MG/100 ML BAG IVPB SCH ×3 (02:44→19:50)
[2022-05-07] MEDS ORDERED: ceFAZolin 2 GM in NS PREMIX 2 GM/100 ML BAG IVPB ONE (09:17)
[2022-05-07] MEDS: Remdesivir 100 mg Vial 100 MG in NS 0.9% 250 ml 230 ML IV SCH (10:02)
[2022-05-07 10:08] LABS: ABS Lymphocytes 0.9 10^3/ul (1.0-4.8); ABS Monocytes 0.4 10^3/ul (0-0.8); ABS Neutrophils 4.7 10^3/ul (1.5-7.7); Eosinophil % 0.6 %; Hematocrit 27 % (35-47); Mean Corpuscular HGB Conc 34 g/dL (31-36); Mean Corpuscular Hemoglobin 24 pg (27-31); Mean Corpuscular Volume 71 fL (80-97); Platelet Count 137 10^3/uL (150-450); Red Blood Count 3.79 10^6 /uL (3.70-4.87); Red Cell Distribution Width 24 % (10-15); White Blood Count 6.1 10^3/uL (3.5-10.8)
[2022-05-07 10:16] LABS: Albumin 3.2 g/dL (3.2-5.2); Albumin/Globulin Ratio 1.3 (1-3); Calcium 8.2 mg/dL (8.6-10.3); Globulin 2.4 g/dL (2-4); Potassium 3.6 mmol/L (3.5-5.0); Total Bilirubin 0.7 mg/dL (0.2-1.0); Total Protein 5.6 g/dL (6.4-8.9); eGFR CKD-EPI 98.1 (>60)
[2022-05-07] MEDS ORDERED: guaiFENesin 100 mg/5 ml LIQ unit dose cup PO PRN (10:36)
[2022-05-07 10:38] LABS: INR 1.21 (0.89-1.11)
[2022-05-07] MEDS ORDERED: Enoxaparin 40 MG/0.4 ML SYR SUBCUT SCH (11:00)
[2022-05-07] MEDS: KCL 20 MEQ/100 ML IVPREMIX 20 MEQ/100 ML BAG IV SCH ×2 (11:22→12:35)
[2022-05-07] MEDS: cefTRIAXone 1 gm/50 mL D5W 1 GM/50 ML BAG IV SCH (17:45)
[2022-05-08] MEDS: metroNIDAZOLE IV 500 MG/100ML 500 MG/100 ML BAG IVPB SCH ×2 (03:12→10:40)
[2022-05-08 03:34] LABS: ABS Monocytes 0.4 10^3/ul (0-0.8); ABS Neutrophils 3.6 10^3/ul (1.5-7.7); Eosinophil % 0.2 %; Hematocrit 25 % (35-47); Hemoglobin 8.5 g/dL (12.0-16.0); Lymphocyte % 19.1 %; Mean Corpuscular HGB Conc 34 g/dL (31-36); Mean Corpuscular Hemoglobin 24 pg (27-31); Mean Corpuscular Volume 71 fL (80-97); Nucleated Red Blood Cells % 0.1; Platelet Count 105 10^3/uL (150-450); Red Blood Count 3.51 10^6 /uL (3.70-4.87); Red Cell Distribution Width 23 % (10-15)
[2022-05-08 03:35] LABS: INR 1.16 (0.89-1.11)
[2022-05-08 04:11] LABS: Calcium 8.1 mg/dL (8.6-10.3); Magnesium 1.9 mg/dL (1.9-2.7); Potassium 4.2 mmol/L (3.5-5.0); eGFR CKD-EPI 100.6 (>60)
[2022-05-08] MEDS: Remdesivir 100 mg Vial 100 MG in NS 0.9% 250 ml 230 ML IV SCH (07:56)
[2022-05-08] MEDS: Enoxaparin 40 MG/0.4 ML SYR SUBCUT SCH (10:39)
[2022-05-08] MEDS: Nystatin SUSPENSION 100,000 UNITS/ML UDC PO SCH ×2 (17:59→22:09)
[2022-05-08] MEDS: cefTRIAXone 1 gm/50 mL D5W 1 GM/50 ML BAG IV SCH (18:01)
[2022-05-08] MEDS: Lidocaine PATCH 5% PATCH TRANSDERM SCH (22:29)
[2022-05-09 04:00] LABS: Hematocrit 29 % (35-47); Hemoglobin 9.6 g/dL (12.0-16.0); Mean Corpuscular HGB Conc 33 g/dL (31-36); Mean Corpuscular Hemoglobin 23 pg (27-31); Mean Corpuscular Volume 71 fL (80-97); Mean Platelet Volume 7.8 fL (7.4-10.4); Platelet Count 136 10^3/uL (150-450); Red Blood Count 4.12 10^6 /uL (3.70-4.87); Red Cell Distribution Width 23 % (10-15); White Blood Count 4.6 10^3/uL (3.5-10.8)
[2022-05-09 04:03] LABS: INR 1.03 (0.89-1.11)
[2022-05-09 04:26] LABS: Calcium 8.6 mg/dL (8.6-10.3); Potassium 4.2 mmol/L (3.5-5.0); eGFR CKD-EPI 91.4 (>60)
[2022-05-09] MEDS: Nystatin SUSPENSION 100,000 UNITS/ML UDC PO SCH ×4 (10:47→21:01)
[2022-05-09] MEDS: Enoxaparin 40 MG/0.4 ML SYR SUBCUT SCH (10:49)
[2022-05-09] MEDS: Remdesivir 100 mg Vial 100 MG in NS 0.9% 250 ml 230 ML IV SCH (10:50)
[2022-05-09] MEDS: Lidocaine PATCH 5% PATCH TRANSDERM SCH (10:53)
[2022-05-09] MEDS: cefTRIAXone 1 gm/50 mL D5W 1 GM/50 ML BAG IV SCH (17:12)
[2022-05-09] MEDS ORDERED: NS 0.9% 1000 ml BAG 1,000 ML IV SCH (23:55)
[2022-05-10 04:45] LABS: Hematocrit 26 % (35-47); Hemoglobin 8.9 g/dL (12.0-16.0); Mean Corpuscular HGB Conc 34 g/dL (31-36); Mean Corpuscular Hemoglobin 24 pg (27-31); Mean Corpuscular Volume 70 fL (80-97); Mean Platelet Volume 7.9 fL (7.4-10.4); Platelet Count 104 10^3/uL (150-450); Red Cell Distribution Width 23 % (10-15)
[2022-05-10 05:06] LABS: Calcium 8.5 mg/dL (8.6-10.3); Magnesium 1.9 mg/dL (1.9-2.7); Potassium 4.2 mmol/L (3.5-5.0)
[2022-05-10] MEDS ORDERED: ceFAZolin 2 GM in NS PREMIX 2 GM/100 ML BAG IVPB ONE (08:00)
[2022-05-10] MEDS ORDERED: ceFAZolin VIAL 1 GM in NS 0.9% 50 ML 50 ML IVPB ONE (08:00)
[2022-05-10] MEDS ORDERED: ceFAZolin VIAL 1 GM in NS *SYRINGE* 10 ML IVPB ONE (08:00)
[2022-05-10] MEDS ORDERED: Lidocaine 1% VIAL 10 MG/ML VIAL ONE (08:12)
[2022-05-10] MEDS ORDERED: Midazolam 5 mg/5 ml VIAL 1 mg/ml 5 ml VIAL (5 mg) ONE (08:16)
[2022-05-10] MEDS ORDERED: fentaNYL 100 mcg/2 ml 50 MCG/ML VIAL ONE (08:16)
[2022-05-10] MEDS: Nystatin SUSPENSION 100,000 UNITS/ML UDC PO SCH ×4 (10:54→22:22)
[2022-05-10] MEDS: Remdesivir 100 mg Vial 100 MG in NS 0.9% 250 ml 230 ML IV SCH (10:55)
[2022-05-10] MEDS: Lidocaine PATCH 5% PATCH TRANSDERM SCH (10:57)
[2022-05-10 13:40] LABS: ABS Lymphocytes 0.7 10^3/ul (1.0-4.8); ABS Monocytes 0.4 10^3/ul (0-0.8); ABS Neutrophils 1.9 10^3/ul (1.5-7.7); Eosinophil % 0.1 %; Lymphocyte % 22.4 %; Nucleated Red Blood Cells % 0.1
[2022-05-10] MEDS: cefTRIAXone 1 gm/50 mL D5W 1 GM/50 ML BAG IV SCH (15:10)
[2022-05-10] MEDS ORDERED: Heparin 5000 UNITS/ML 1 mL VIAL SUBCUT ONE (16:15)
[2022-05-10] MEDS ORDERED: NS 0.9% 1000 ml BAG 1,000 ML IV SCH (23:55)
[2022-05-11 06:28] LABS: ABS Lymphocytes 1.1 10^3/ul (1.0-4.8); ABS Monocytes 0.6 10^3/ul (0-0.8); ABS Neutrophils 2.7 10^3/ul (1.5-7.7); Eosinophil % 0.1 %; Hematocrit 28 % (35-47); Hemoglobin 9.6 g/dL (12.0-16.0); Lymphocyte % 24.7 %; Mean Corpuscular HGB Conc 34 g/dL (31-36); Mean Corpuscular Hemoglobin 24 pg (27-31); Mean Corpuscular Volume 71 fL (80-97); Mean Platelet Volume 7.9 fL (7.4-10.4); Nucleated Red Blood Cells % 0.2; Platelet Count 155 10^3/uL (150-450); Red Blood Count 3.97 10^6 /uL (3.70-4.87); Red Cell Distribution Width 23 % (10-15); White Blood Count 4.3 10^3/uL (3.5-10.8)
[2022-05-11 06:31] LABS: INR 0.95 (0.89-1.11)
[2022-05-11 07:13] LABS: Calcium 8.6 mg/dL (8.6-10.3); Potassium 4.4 mmol/L (3.5-5.0); eGFR CKD-EPI 78.5 (>60)
[2022-05-11] MEDS: Lidocaine PATCH 5% PATCH TRANSDERM SCH (10:47)
[2022-05-11] MEDS: Nystatin SUSPENSION 100,000 UNITS/ML UDC PO SCH ×3 (10:48→16:49)
[2022-05-11] MEDS ORDERED: Lidocaine 1% MPF 5 ML VIAL ONE (11:24)
[2022-05-11] MEDS ORDERED: Midazolam 5 mg/5 ml VIAL 1 mg/ml 5 ml VIAL (5 mg) ONE (12:01)
[2022-05-11] MEDS ORDERED: fentaNYL 100 mcg/2 ml 50 MCG/ML VIAL ONE (12:01)
[2022-05-11 16:20] VITALS: BP 133/49
[2022-05-11] MEDS: cefTRIAXone 1 gm/50 mL D5W 1 GM/50 ML BAG IV SCH (16:51)
== END 2022-05-11 19:31 | disposition home or self-care (01) | DRG 951 ==
LOC: ED 14:16 → SUATTDRO 05-06 02:17 → EDHOLD 05-06 02:17 → ICU 05-06 08:00 → MEDTELE 05-07 16:56
PROVIDERS: ADMIT Hospitalist; ATTEND Family Medicine

== ENCOUNTER 2022-05-13 09:46 | Observation (INO) ==
[2022-05-13 11:55] LABS: ABS Lymphocytes 0.5 10^3/ul (1.0-4.8); ABS Monocytes 0.3 10^3/ul (0-0.8); Hematocrit 28 % (35-47); Hemoglobin 9.3 g/dL (12.0-16.0); Mean Corpuscular HGB Conc 33 g/dL (31-36); Mean Corpuscular Hemoglobin 24 pg (27-31); Mean Corpuscular Volume 72 fL (80-97); Mean Platelet Volume 6.4 fL (7.4-10.4); Nucleated Red Blood Cells % 0.5; Platelet Count 179 10^3/uL (150-450); Red Blood Count 3.91 10^6 /uL (3.70-4.87); Red Cell Distribution Width 24 % (10-15); White Blood Count 3.8 10^3/uL (3.5-10.8)
[2022-05-13 12:36] LABS: Albumin 3.4 g/dL (3.2-5.2); Albumin/Globulin Ratio 1.3 (1-3); Calcium 8.5 mg/dL (8.6-10.3); Globulin 2.7 g/dL (2-4); Potassium 4.8 mmol/L (3.5-5.0); Total Bilirubin 0.5 mg/dL (0.2-1.0); Total Protein 6.1 g/dL (6.4-8.9); eGFR CKD-EPI 84.5 (>60)
[2022-05-13] MEDS ORDERED: Dextrose 50% Syringe 50 ml 25 GM/50 ML SYRINGE IV PUSH PRN (14:01)
[2022-05-13] MEDS ORDERED: Albuterol HFA INHALER 8 gm MDI INH PRN (14:02)
[2022-05-13] MEDS ORDERED: Ondansetron ODT 4 mg TAB 4 MG TAB PO PRN (14:06)
[2022-05-13] MEDS ORDERED: Furosemide 40 mg/4 ml IV VIAL IV SLOW PU ONE (14:19)
[2022-05-13] MEDS: Enoxaparin 40 MG/0.4 ML SYR SUBCUT SCH (15:00)
[2022-05-13 15:06] LABS: TSH Ultra Thyroid Stim Horm 1.63 mcIU/mL (0.34-5.60)
[2022-05-13] MEDS ORDERED: Iron Sucrose 200 MG in NS 0.9% 100 ml BAG 100 ML IVPB SCH (16:00)
[2022-05-13 16:38] LABS: Ferritin 728.9 ng/mL (11-307)
[2022-05-13] MEDS: Nystatin SUSPENSION 100,000 UNITS/ML UDC PO SCH ×2 (17:12→21:32)
[2022-05-13] MEDS ORDERED: Budesonide/Formote 160/4.5(NF) MDI INH SCH (19:00)
[2022-05-14] MEDS: Mometasone/Formoter 200/5 MDI INH SCH ×3 (00:27→19:14)
[2022-05-14 06:25] LABS: Calcium 8.5 mg/dL (8.6-10.3); Magnesium 2.1 mg/dL (1.9-2.7); Potassium 4.2 mmol/L (3.5-5.0)
[2022-05-14] MEDS: Nystatin SUSPENSION 100,000 UNITS/ML UDC PO SCH ×4 (08:24→22:12)
[2022-05-14] MEDS: Enoxaparin 40 MG/0.4 ML SYR SUBCUT SCH (13:14)
[2022-05-15 05:43] LABS: Calcium 8.8 mg/dL (8.6-10.3); Magnesium 2.1 mg/dL (1.9-2.7); Potassium 4.3 mmol/L (3.5-5.0); eGFR CKD-EPI 65.3 (>60)
[2022-05-15] MEDS: Mometasone/Formoter 200/5 MDI INH SCH ×2 (07:41→19:36)
[2022-05-15] MEDS: Nystatin SUSPENSION 100,000 UNITS/ML UDC PO SCH ×4 (09:11→21:43)
[2022-05-15] MEDS: Enoxaparin 40 MG/0.4 ML SYR SUBCUT SCH (17:04)
[2022-05-16 07:43] VITALS: BP 148/64
[2022-05-16] MEDS: Mometasone/Formoter 200/5 MDI INH SCH (07:47)
[2022-05-16] MEDS: Nystatin SUSPENSION 100,000 UNITS/ML UDC PO SCH (08:54)
== END 2022-05-16 12:15 | disposition home or self-care (01) ==
LOC: ED 09:46 → EDHOLD 09:46 → MED 21:01
PROVIDERS: ADMIT Student in an Organized Health Care Education/Training Program; ATTEND Student in an Organized Health Care Education/Training Program

== ENCOUNTER 2022-06-22 11:08 | Observation (INO) ==
[2022-06-22] MEDS ORDERED: NS 0.9% 1000 ml BAG 1,000 ML IV ONE (11:15)
[2022-06-22] MEDS ORDERED: Ondansetron 4 mg VIAL 2 MG/ML 2 ml VIAL IV ONE (11:16)
[2022-06-22 13:31] LABS: ABS Lymphocytes 0.9 10^3/ul (1.0-4.8); ABS Monocytes 0.3 10^3/ul (0-0.8); ABS Neutrophils 2.2 10^3/ul (1.5-7.7); Eosinophil % 0.9 %; Hematocrit 31 % (35-47); Hemoglobin 10.2 g/dL (12.0-16.0); Mean Corpuscular HGB Conc 33 g/dL (31-36); Mean Corpuscular Hemoglobin 28 pg (27-31); Mean Corpuscular Volume 83 fL (80-97); Mean Platelet Volume 6.1 fL (7.4-10.4); Platelet Count 246 10^3/uL (150-450); Red Cell Distribution Width 21 % (10-15); White Blood Count 3.3 10^3/uL (3.5-10.8)
[2022-06-22 14:02] LABS: Albumin 2.9 g/dL (3.2-5.2); Albumin/Globulin Ratio 1.4 (1-3); Calcium 8.2 mg/dL (8.6-10.3); Globulin 2.1 g/dL (2-4); Potassium 3.3 mmol/L (3.5-5.0); Total Bilirubin 0.6 mg/dL (0.2-1.0); eGFR CKD-EPI 92.9 (>60)
[2022-06-22 15:52] LABS: Magnesium 1.8 mg/dL (1.9-2.7)
[2022-06-22] MEDS ORDERED: Ondansetron 4 mg VIAL 2 MG/ML 2 ml VIAL IV PRN (16:20)
[2022-06-22] MEDS ORDERED: Magnesium Sulfate 2 gm BAG 2 GM/50 ML BAG IVPB ONE (16:24)
[2022-06-22] MEDS ORDERED: Albuterol HFA INHALER 8 gm MDI INH PRN (16:27)
[2022-06-22 16:29] LABS: Urine Appearance Cloudy; Urine Bilirubin 1+ (Negative); Urine Blood Negative (Negative); Urine Color Amber; Urine Glucose Negative (Negative); Urine Ketones 2+ (Negative); Urine Nitrite Negative (Negative); Urine Protein 2+(100 mg/dL) (Negative); Urine Specific Gravity 1.026 (1.002-1.030); Urine Urobilinogen Negative (Negative)
[2022-06-22 16:49] LABS: Urine Bacteria 1+ (Absent); Urine Red Blood Cell 3+(>10/hpf) (Absent); Urine Squamous Epithelial Cell Present (Absent); Urine White Blood Cell 2+(11-20/hpf) (Absent)
[2022-06-22] MEDS: Potassium Chlor 20 meq TAB.ER PO ONE ×2 (16:59→17:02)
[2022-06-22] MEDS: Enoxaparin 40 MG/0.4 ML SYR SUBCUT SCH (18:35)
[2022-06-22] MEDS: Lactated Ringers 1000 ml BAG 1,000 ML IV SCH (18:35)
[2022-06-22] MEDS: Mometasone/Formoter 200/5 MDI INH SCH (19:54)
[2022-06-22 22:36] LABS: C Reactive Protein 3.21 mg/L (<8.01)
[2022-06-23 04:48] LABS: ABS Eosinophils 0.1 10^3/ul (0-0.6); ABS Monocytes 0.2 10^3/ul (0-0.8); ABS Neutrophils 1.8 10^3/ul (1.5-7.7); Eosinophil % 1.7 %; Hematocrit 28 % (35-47); Hemoglobin 9.1 g/dL (12.0-16.0); Lymphocyte % 32.1 %; Mean Corpuscular HGB Conc 33 g/dL (31-36); Mean Corpuscular Hemoglobin 27 pg (27-31); Mean Corpuscular Volume 82 fL (80-97); Mean Platelet Volume 5.9 fL (7.4-10.4); Nucleated Red Blood Cells % 0.1; Platelet Count 194 10^3/uL (150-450); Red Blood Count 3.37 10^6 /uL (3.70-4.87); Red Cell Distribution Width 21 % (10-15); White Blood Count 3.2 10^3/uL (3.5-10.8)
[2022-06-23 05:09] LABS: Calcium 7.9 mg/dL (8.6-10.3); Potassium 3.2 mmol/L (3.5-5.0); eGFR CKD-EPI 98.4 (>60)
[2022-06-23] MEDS: Mometasone/Formoter 200/5 MDI INH SCH ×2 (07:36→19:14)
[2022-06-23] MEDS: Lactated Ringers 1000 ml BAG 1,000 ML IV SCH (08:40)
[2022-06-23] MEDS ORDERED: Potassium Chlor 20 meq TAB.ER PO ONE (09:23)
[2022-06-23] MEDS: Enoxaparin 40 MG/0.4 ML SYR SUBCUT SCH (17:38)
[2022-06-24 05:34] LABS: ABS Eosinophils 0.1 10^3/ul (0-0.6); ABS Monocytes 0.3 10^3/ul (0-0.8); ABS Neutrophils 2.9 10^3/ul (1.5-7.7); Eosinophil % 1.4 %; Hematocrit 28 % (35-47); Lymphocyte % 23.5 %; Mean Corpuscular HGB Conc 33 g/dL (31-36); Mean Corpuscular Hemoglobin 27 pg (27-31); Mean Corpuscular Volume 81 fL (80-97); Mean Platelet Volume 6.1 fL (7.4-10.4); Platelet Count 185 10^3/uL (150-450); Red Blood Count 3.38 10^6 /uL (3.70-4.87); Red Cell Distribution Width 20 % (10-15); White Blood Count 4.3 10^3/uL (3.5-10.8)
[2022-06-24 05:56] LABS: Calcium 7.9 mg/dL (8.6-10.3); Magnesium 1.9 mg/dL (1.9-2.7); Potassium 3.3 mmol/L (3.5-5.0)
[2022-06-24] MEDS ORDERED: Potassium Chlor 20 meq TAB.ER PO ONE (06:58)
[2022-06-24] MEDS: Mometasone/Formoter 200/5 MDI INH SCH ×2 (07:48→19:36)
[2022-06-24] MEDS ORDERED: NS 0.9% 250 ml 250 ML IV ONE (08:38)
[2022-06-24] MEDS: cefTRIAXone 1 gm/50 mL D5W 1 GM/50 ML BAG IV SCH (15:55)
[2022-06-24] MEDS: Enoxaparin 40 MG/0.4 ML SYR SUBCUT SCH (18:30)
[2022-06-25] MEDS: Mometasone/Formoter 200/5 MDI INH SCH ×2 (07:39→20:06)
[2022-06-25] MEDS: cefTRIAXone 1 gm/50 mL D5W 1 GM/50 ML BAG IV SCH (13:54)
[2022-06-25 16:21] LABS: ABS Lymphocytes 0.7 10^3/ul (1.0-4.8); ABS Monocytes 0.3 10^3/ul (0-0.8); ABS Neutrophils 2.7 10^3/ul (1.5-7.7); Eosinophil % 0.6 %; Hematocrit 26 % (35-47); Hemoglobin 8.6 g/dL (12.0-16.0); Lymphocyte % 18.4 %; Mean Corpuscular HGB Conc 33 g/dL (31-36); Mean Corpuscular Hemoglobin 27 pg (27-31); Mean Corpuscular Volume 82 fL (80-97); Mean Platelet Volume 6.1 fL (7.4-10.4); Nucleated Red Blood Cells % 0.1; Platelet Count 145 10^3/uL (150-450); Red Cell Distribution Width 20 % (10-15); White Blood Count 3.8 10^3/uL (3.5-10.8)
[2022-06-25 16:30] VITALS: BP 118/48
[2022-06-25 16:57] LABS: Calcium 7.9 mg/dL (8.6-10.3); Magnesium 1.8 mg/dL (1.9-2.7); Potassium 3.2 mmol/L (3.5-5.0); eGFR CKD-EPI 100.6 (>60)
[2022-06-25] MEDS: Enoxaparin 40 MG/0.4 ML SYR SUBCUT SCH (18:00)
== END 2022-06-25 19:30 | disposition home or self-care (01) ==
LOC: MED 11:08 → ED 11:08 → MED 17:21 → SUATTDRO 18:14
PROVIDERS: ADMIT Internal Medicine; ATTEND Internal Medicine

== ENCOUNTER 2022-06-28 18:58 | Inpatient (IN) ==
[2022-06-28] MEDS ORDERED: NS 0.9% 1000 ml BAG 1,000 ML IV ONE (19:25)
[2022-06-28 20:23] LABS: ABS Lymphocytes 0.8 10^3/ul (1.0-4.8); ABS Neutrophils 8.5 10^3/ul (1.5-7.7); Eosinophil % 0.1 %; Hematocrit 30 % (35-47); Hemoglobin 9.8 g/dL (12.0-16.0); Mean Corpuscular HGB Conc 33 g/dL (31-36); Mean Corpuscular Hemoglobin 26 pg (27-31); Mean Corpuscular Volume 81 fL (80-97); Mean Platelet Volume 5.9 fL (7.4-10.4); Platelet Count 143 10^3/uL (150-450); Red Blood Count 3.71 10^6 /uL (3.70-4.87); Red Cell Distribution Width 20 % (10-15); White Blood Count 10.3 10^3/uL (3.5-10.8)
[2022-06-28 20:57] LABS: Albumin 2.8 g/dL (3.2-5.2); Calcium 7.9 mg/dL (8.6-10.3); Potassium 3.3 mmol/L (3.5-5.0); Total Bilirubin 0.8 mg/dL (0.2-1.0)
[2022-06-28 21:03] LABS: Albumin/Globulin Ratio 1.3 (1-3); Globulin 2.2 g/dL (2-4)
[2022-06-28] MEDS ORDERED: Potassium Chlor 20 meq TAB.ER PO ONE (21:05)
[2022-06-28] MEDS ORDERED: Ondansetron 4 mg VIAL 2 MG/ML 2 ml VIAL ONE (22:38)
[2022-06-28] MEDS: Enoxaparin 40 MG/0.4 ML SYR SUBCUT SCH (22:44)
[2022-06-28] MEDS ORDERED: Ondansetron 4 mg VIAL 2 MG/ML 2 ml VIAL IV ONE (22:46)
[2022-06-29] MEDS ORDERED: Albuterol HFA INHALER 8 gm MDI INH PRN (00:33)
[2022-06-29] MEDS ORDERED: Lactated Ringers 1000 ml BAG 1,000 ML IV SCH (01:00)
[2022-06-29] MEDS ORDERED: Morphine 2 MG/ML SYRINGE IV ONE (05:57)
[2022-06-29] MEDS ORDERED: Potassium Chlor 20 meq TAB.ER PO ONE (11:34)
[2022-06-29] MEDS ORDERED: Prochlorperazine 5 mg/ml 2 ml VIAL (10 mg) IV PRN (11:49)
[2022-06-29 11:55] LABS: Hematocrit 28 % (35-47); Hemoglobin 9.1 g/dL (12.0-16.0); Mean Corpuscular HGB Conc 32 g/dL (31-36); Mean Corpuscular Hemoglobin 26 pg (27-31); Mean Corpuscular Volume 81 fL (80-97); Mean Platelet Volume 6.1 fL (7.4-10.4); Platelet Count 141 10^3/uL (150-450); Red Blood Count 3.46 10^6 /uL (3.70-4.87); Red Cell Distribution Width 20 % (10-15); White Blood Count 10.8 10^3/uL (3.5-10.8)
[2022-06-29 12:26] LABS: Urine Appearance Cloudy; Urine Bilirubin Negative (Negative); Urine Blood Negative (Negative); Urine Color Amber; Urine Glucose Negative (Negative); Urine Ketones 1+ (Negative); Urine Nitrite Negative (Negative); Urine Protein 2+(100 mg/dL) (Negative); Urine Specific Gravity 1.028 (1.002-1.030); Urine Urobilinogen Negative (Negative)
[2022-06-29 12:30] LABS: Urine Bacteria Absent (Absent); Urine Red Blood Cell 2+(6-10/hpf) (Absent); Urine Squamous Epithelial Cell Present (Absent); Urine White Blood Cell 3+(>20/hpf) (Absent)
[2022-06-29 12:32] LABS: Calcium 7.8 mg/dL (8.6-10.3); Magnesium 1.7 mg/dL (1.9-2.7); Potassium 3.4 mmol/L (3.5-5.0)
[2022-06-29 12:37] LABS: eGFR CKD-EPI 93.9 (>60)
[2022-06-29] MEDS: Ondansetron 4 mg VIAL 2 MG/ML 2 ml VIAL IV PRN (12:56)
[2022-06-29] MEDS: Iodixanol (CONTRAST) 320 MG/ML 100 ML SDV IV ONE ×2 (14:10→14:16)
[2022-06-29] MEDS ORDERED: Magnesium Sulfate IV 3 GM in NS 0.9% 100 ml BAG 100 ML IVPB ONE (14:24)
[2022-06-29 14:55] LABS: Albumin 2.6 g/dL (3.2-5.2); Direct Bilirubin 0.2 mg/dL (0.03-0.18); Indirect Bilirubin 0.5 mg/dL (0.3-1.0); Total Bilirubin 0.7 mg/dL (0.2-1.0)
[2022-06-29 15:01] LABS: Albumin/Globulin Ratio 1.2 (1-3); Globulin 2.1 g/dL (2-4); Total Protein 4.7 g/dL (6.4-8.9)
[2022-06-29] MEDS ORDERED: Potassium Chloride LIQUID 20 MEQ/15 ML LIQUID PO ONE ×2 (17:28→20:00)
[2022-06-29] MEDS ORDERED: Dextrose 50% Syringe 50 ml 25 GM/50 ML SYRINGE IV PUSH PRN (17:31)
[2022-06-29] MEDS ORDERED: HYDROmorphone 0.5 MG/0.5 ML SYRINGE IV SLOW PU ONE (22:18)
[2022-06-29] MEDS: Enoxaparin 40 MG/0.4 ML SYR SUBCUT SCH (23:06)
[2022-06-30 07:09] LABS: Hematocrit 25 % (35-47); Mean Corpuscular HGB Conc 33 g/dL (31-36); Mean Corpuscular Hemoglobin 27 pg (27-31); Mean Corpuscular Volume 82 fL (80-97); Mean Platelet Volume 6.5 fL (7.4-10.4); Platelet Count 130 10^3/uL (150-450); Red Cell Distribution Width 20 % (10-15); White Blood Count 8.6 10^3/uL (3.5-10.8)
[2022-06-30 07:27] LABS: Magnesium 2.2 mg/dL (1.9-2.7)
[2022-06-30 07:33] LABS: Phosphorus 2.4 mg/dL (2.5-5.0)
[2022-06-30 08:05] LABS: Calcium 7.8 mg/dL (8.6-10.3); Potassium 3.7 mmol/L (3.5-5.0)
[2022-06-30] MEDS ORDERED: Potassium Chloride LIQUID 20 MEQ/15 ML LIQUID PO ONE (08:10)
[2022-06-30 08:11] LABS: eGFR CKD-EPI 99.2 (>60)
[2022-06-30] MEDS ORDERED: Piperacillin/Tazobac ADVAN 3.375 GM in NS 0.9% 100 ml BAG 100 ML IV ONE (08:59)
[2022-06-30] MEDS ORDERED: Zosyn per Pharmacy NOTE FOLLOW UP SCH (09:00)
[2022-06-30] MEDS ORDERED: Lactated Ringers 500 ml BAG 250 ML IV ONE (12:08)
[2022-06-30] MEDS: ZOSYN 3.375 GM Q8H per EXTENDED INFUSION IV SCH ×2 (13:58→21:56)
[2022-06-30] MEDS: Enoxaparin 40 MG/0.4 ML SYR SUBCUT SCH (19:47)
[2022-07-01] MEDS: ZOSYN 3.375 GM Q8H per EXTENDED INFUSION IV SCH ×3 (05:02→21:11)
[2022-07-01 05:11] LABS: ABS Monocytes 0.8 10^3/ul (0-0.8); ABS Neutrophils 5.1 10^3/ul (1.5-7.7); Eosinophil % 0.5 %; Hematocrit 24 % (35-47); Hemoglobin 7.7 g/dL (12.0-16.0); Lymphocyte % 14.2 %; Mean Corpuscular HGB Conc 33 g/dL (31-36); Mean Corpuscular Hemoglobin 27 pg (27-31); Mean Corpuscular Volume 81 fL (80-97); Mean Platelet Volume 6.3 fL (7.4-10.4); Platelet Count 131 10^3/uL (150-450); Red Blood Count 2.89 10^6 /uL (3.70-4.87); Red Cell Distribution Width 19 % (10-15); White Blood Count 6.9 10^3/uL (3.5-10.8)
[2022-07-01 06:25] LABS: Calcium 7.7 mg/dL (8.6-10.3); Potassium 3.8 mmol/L (3.5-5.0)
[2022-07-01 06:31] LABS: Phosphorus 2.6 mg/dL (2.5-5.0); eGFR CKD-EPI 99.2 (>60)
[2022-07-01] MEDS: Ondansetron 4 mg VIAL 2 MG/ML 2 ml VIAL IV PRN ×2 (09:44→21:28)
[2022-07-01] MEDS ORDERED: Enoxaparin 40 MG/0.4 ML SYR SUBCUT ONE (14:29)
[2022-07-01 14:34] LABS: Direct Bilirubin 0.2 mg/dL (0.03-0.18); Indirect Bilirubin 0.6 mg/dL (0.3-1.0); Total Bilirubin 0.8 mg/dL (0.2-1.0)
[2022-07-02] MEDS: ZOSYN 3.375 GM Q8H per EXTENDED INFUSION IV SCH ×2 (04:57→17:42)
[2022-07-02 05:20] LABS: Hematocrit 25 % (35-47); Mean Corpuscular HGB Conc 32 g/dL (31-36); Mean Corpuscular Hemoglobin 26 pg (27-31); Mean Corpuscular Volume 81 fL (80-97); Mean Platelet Volume 6.4 fL (7.4-10.4); Platelet Count 161 10^3/uL (150-450); Red Blood Count 3.08 10^6 /uL (3.70-4.87); Red Cell Distribution Width 19 % (10-15); White Blood Count 6.2 10^3/uL (3.5-10.8)
[2022-07-02 05:38] LABS: Calcium 7.6 mg/dL (8.6-10.3); Magnesium 1.8 mg/dL (1.9-2.7); Potassium 3.6 mmol/L (3.5-5.0); eGFR CKD-EPI 90.9 (>60)
[2022-07-02] MEDS ORDERED: Lidocaine 1% VIAL 10 MG/ML VIAL ONE (10:07)
[2022-07-02] MEDS ORDERED: fentaNYL 250 mcg/5 ml 50 MCG/ML 5 ml VIAL (250 MCG) ONE (10:07)
[2022-07-02] MEDS ORDERED: Potassium Chloride LIQUID 20 MEQ/15 ML LIQUID PO ONE (10:09)
[2022-07-02] MEDS ORDERED: Magnesium Sulfate IV 3 GM in NS 0.9% 100 ml BAG 100 ML IVPB ONE (10:30)
[2022-07-02 15:11] LABS: INR 1.16 (0.89-1.11)
[2022-07-02] MEDS: Enoxaparin 40 MG/0.4 ML SYR SUBCUT SCH (17:43)
[2022-07-03] MEDS: ZOSYN 3.375 GM Q8H per EXTENDED INFUSION IV SCH ×4 (00:43→17:40)
[2022-07-03 05:40] LABS: Calcium 7.5 mg/dL (8.6-10.3); Magnesium 2.2 mg/dL (1.9-2.7); Potassium 3.1 mmol/L (3.5-5.0)
[2022-07-03 05:46] LABS: eGFR CKD-EPI 99.2 (>60)
[2022-07-03] MEDS ORDERED: Potassium Chlor 20 meq TAB.ER PO ONE (07:25)
[2022-07-03] MEDS: KCL 20 MEQ/100 ML IVPREMIX 20 MEQ/100 ML BAG IV SCH ×2 (13:14→15:31)
[2022-07-03] MEDS: Enoxaparin 40 MG/0.4 ML SYR SUBCUT SCH (17:41)
[2022-07-04] MEDS: ZOSYN 3.375 GM Q8H per EXTENDED INFUSION IV SCH ×3 (00:51→17:20)
[2022-07-04 05:01] LABS: Hematocrit 23 % (35-47); Hemoglobin 7.5 g/dL (12.0-16.0); Mean Corpuscular HGB Conc 33 g/dL (31-36); Mean Corpuscular Hemoglobin 27 pg (27-31); Mean Corpuscular Volume 81 fL (80-97); Mean Platelet Volume 6.2 fL (7.4-10.4); Platelet Count 146 10^3/uL (150-450); Red Blood Count 2.84 10^6 /uL (3.70-4.87); Red Cell Distribution Width 19 % (10-15); White Blood Count 4.6 10^3/uL (3.5-10.8)
[2022-07-04 05:16] LABS: Calcium 7.6 mg/dL (8.6-10.3); Potassium 3.3 mmol/L (3.5-5.0)
[2022-07-04 05:22] LABS: eGFR CKD-EPI 101.2 (>60)
[2022-07-04] MEDS ORDERED: Potassium Chloride LIQUID 20 MEQ/15 ML LIQUID PO ONE (07:04)
[2022-07-04] MEDS: Ondansetron 4 mg VIAL 2 MG/ML 2 ml VIAL IV PRN ×2 (08:01→20:54)
[2022-07-04] MEDS: Enoxaparin 40 MG/0.4 ML SYR SUBCUT SCH (17:23)
[2022-07-05] MEDS: ZOSYN 3.375 GM Q8H per EXTENDED INFUSION IV SCH ×2 (01:13→09:07)
[2022-07-05 10:33] LABS: Calcium 7.4 mg/dL (8.6-10.3); Magnesium 1.9 mg/dL (1.9-2.7); Potassium 3.4 mmol/L (3.5-5.0)
[2022-07-05 10:39] LABS: eGFR CKD-EPI 102.5 (>60)
[2022-07-05 10:57] VITALS: BP 108/70
[2022-07-05 12:08] LABS: Rapid COVID-19 Molecular Undetected (Undetected)
== END 2022-07-05 13:15 | DRG 261 ==
LOC: EDHOLD 18:58 → ED 18:58 → SUATTDRO 21:59 → EDHOLD 06-29 12:56 → MED 06-29 20:59 → SUATTDRO 06-30 11:36
PROVIDERS: ADMIT Internal Medicine; ATTEND Internal Medicine

== ENCOUNTER 2022-07-12 11:29 | Inpatient (IN) ==
[2022-07-12 12:58] LABS: Hematocrit 23 % (35-47); Hemoglobin 7.6 g/dL (12.0-16.0); Mean Corpuscular HGB Conc 33 g/dL (31-36); Mean Corpuscular Hemoglobin 26 pg (27-31); Mean Corpuscular Volume 80 fL (80-97); Red Blood Count 2.91 10^6 /uL (3.70-4.87); Red Cell Distribution Width 19 % (10-15); White Blood Count 6.2 10^3/uL (3.5-10.8)
[2022-07-12 12:59] LABS: ABS Monocytes 0.1 10^3/ul (0-0.8); ABS Neutrophils 5.1 10^3/ul (1.5-7.7); Eosinophil % 0.1 %; Lymphocyte % 15.6 %
[2022-07-12 13:02] LABS: High Sens Troponin Baseline 21 pg/mL (<15)
[2022-07-12 13:18] LABS: Mean Platelet Volume 7.3 fL (7.4-10.4); Platelet Count 68 10^3/uL (150-450)
[2022-07-12 13:25] LABS: ALT 7 U/L (7-52); Albumin/Globulin Ratio 1.1 (1-3); Alkaline Phosphatase 58 U/L (35-149); Blood Urea Nitrogen 16 mg/dL (6-24); CO2 Carbon Dioxide 28 mmol/L (22-32); Calcium 8.2 mg/dL (8.6-10.3); Chloride 102 mmol/L (101-111); Globulin 2.7 g/dL (2-4); Glucose 96 mg/dL (70-100); Sodium 143 mmol/L (135-145); Total Protein 5.7 g/dL (6.4-8.9); eGFR CKD-EPI 100.4 (>60)
[2022-07-12 13:32] LABS: Anion Gap 13 mmol/L (2-11)
[2022-07-12 14:05] LABS: High Sensitivity Troponin 1 Hr 20 pg/mL (<15)
[2022-07-12 14:22] LABS: Potassium Redraw 3.9 mmol/L (3.5-5.0)
[2022-07-12 16:59] LABS: Urine Appearance Clear; Urine Bilirubin 1+ (Negative); Urine Blood Negative (Negative); Urine Color Amber; Urine Glucose Negative (Negative); Urine Ketones 1+ (Negative); Urine Nitrite Negative (Negative); Urine Protein 1+(30 mg/dL) (Negative); Urine Specific Gravity 1.023 (1.002-1.030); Urine Urobilinogen Negative (Negative)
[2022-07-12] MEDS ORDERED: Albuterol HFA INHALER 8 gm MDI INH PRN (16:59)
[2022-07-12 17:22] LABS: Urine Bacteria 1+ (Absent); Urine Red Blood Cell 2+(6-10/hpf) (Absent); Urine Squamous Epithelial Cell Present (Absent); Urine White Blood Cell 3+(>20/hpf) (Absent)
[2022-07-12 17:46] LABS: Magnesium 1.9 mg/dL (1.9-2.7)
[2022-07-12] MEDS ORDERED: cefTRIAXone 2 gm/50 mL D5W 2 GM/50 ML BAG IV ONE (18:52)
[2022-07-12] MEDS ORDERED: Magnesium Sulfate 2 gm BAG 2 GM/50 ML BAG IVPB ONE (19:09)
[2022-07-12] MEDS: Enoxaparin 40 MG/0.4 ML SYR SUBCUT SCH (19:10)
[2022-07-12 19:58] LABS: Ferritin 847.8 ng/mL (11-307)
[2022-07-12] MEDS: Lactated Ringers 1000 ml BAG 1,000 ML IV SCH (22:26)
[2022-07-12] MEDS: Mometasone/Formoter 200/5 MDI INH SCH (22:31)
[2022-07-13 05:31] LABS: Hematocrit 20 % (35-47); Hemoglobin 6.8 g/dL (12.0-16.0); Mean Corpuscular HGB Conc 34 g/dL (31-36); Mean Corpuscular Hemoglobin 27 pg (27-31); Mean Corpuscular Volume 80 fL (80-97); Mean Platelet Volume 7.3 fL (7.4-10.4); Platelet Count 43 10^3/uL (150-450); Red Blood Count 2.54 10^6 /uL (3.70-4.87); Red Cell Distribution Width 19 % (10-15); White Blood Count 2.9 10^3/uL (3.5-10.8)
[2022-07-13 05:52] LABS: Calcium 7.8 mg/dL (8.6-10.3); Magnesium 2.4 mg/dL (1.9-2.7); Potassium 3.8 mmol/L (3.5-5.0); eGFR CKD-EPI 99.6 (>60)
[2022-07-13 08:11] LABS: ABS Lymphocytes 0.8 10^3/ul (1.0-4.8); ABS Monocytes 0.1 10^3/ul (0-0.8); ABS Neutrophils 2.1 10^3/ul (1.5-7.7); Eosinophil % 0.1 %; Lymphocyte % 27.1 %
[2022-07-13] MEDS: Mometasone/Formoter 200/5 MDI INH SCH ×2 (08:37→17:43)
[2022-07-13 08:54] LABS: Hematocrit 21 % (35-47); Mean Corpuscular HGB Conc 33 g/dL (31-36); Mean Corpuscular Hemoglobin 26 pg (27-31); Mean Corpuscular Volume 80 fL (80-97); Platelet Count 47 10^3/uL (150-450); Red Blood Count 2.65 10^6 /uL (3.70-4.87); Red Cell Distribution Width 18 % (10-15); White Blood Count 2.9 10^3/uL (3.5-10.8)
[2022-07-13] MEDS ORDERED: Thiamine 100 MG/ML 2 ml VIAL (200 mg) IV ONE (12:01)
[2022-07-13] MEDS ORDERED: Thiamine IV 100 MG in NS 0.9% 50 ML Q24H IV ONE (13:00)
[2022-07-13] MEDS: Lactated Ringers 1000 ml BAG 1,000 ML IV SCH (13:18)
[2022-07-13] MEDS ORDERED: Iodixanol (CONTRAST) 320 MG/ML 100 ML SDV IV ONE (14:45)
[2022-07-13] MEDS ORDERED: KCL 20 MEQ/100 ML IVPREMIX 20 MEQ/100 ML BAG IV ONE (16:39)
[2022-07-13 17:20] LABS: ABS Lymphocytes 0.7 10^3/ul (1.0-4.8); ABS Monocytes 0.1 10^3/ul (0-0.8); ABS Neutrophils 2.1 10^3/ul (1.5-7.7); Eosinophil % 0.1 %; Lymphocyte % 24.8 %; Nucleated Red Blood Cells % 0.1
[2022-07-13 17:51] LABS: Urine Appearance Clear; Urine Bilirubin 1+ (Negative); Urine Blood Negative (Negative); Urine Color Yellow; Urine Glucose Negative (Negative); Urine Ketones 1+ (Negative); Urine Nitrite Negative (Negative); Urine Protein Negative (Negative); Urine Specific Gravity 1.024 (1.002-1.030); Urine Urobilinogen Negative (Negative)
[2022-07-13] MEDS ORDERED: Lactated Ringers 1000 ml BAG 1,000 ML IV SCH (18:23)
[2022-07-13 19:03] LABS: TSH Ultra Thyroid Stim Horm 1.64 mcIU/mL (0.34-5.60)
[2022-07-13] MEDS ORDERED: Lactated Ringers 500 ml BAG 500 ML IV ONE (20:38)
[2022-07-13] MEDS: Enoxaparin 40 MG/0.4 ML SYR SUBCUT SCH ×2 (20:57→21:05)
[2022-07-14 01:07] LABS: Hematocrit 22 % (35-47)
[2022-07-14 05:43] LABS: ABS Lymphocytes 0.9 10^3/ul (1.0-4.8); ABS Monocytes 0.1 10^3/ul (0-0.8); ABS Neutrophils 2.7 10^3/ul (1.5-7.7); Eosinophil % 1.2 %; Hematocrit 22 % (35-47); Lymphocyte % 24.4 %; Mean Corpuscular HGB Conc 33 g/dL (31-36); Mean Corpuscular Hemoglobin 26 pg (27-31); Mean Corpuscular Volume 81 fL (80-97); Mean Platelet Volume 7.3 fL (7.4-10.4); Nucleated Red Blood Cells % 0.1; Platelet Count 43 10^3/uL (150-450); Red Blood Count 2.65 10^6 /uL (3.70-4.87); Red Cell Distribution Width 17 % (10-15); White Blood Count 3.8 10^3/uL (3.5-10.8)
[2022-07-14 05:52] LABS: Calcium 7.7 mg/dL (8.6-10.3); Magnesium 2.2 mg/dL (1.9-2.7); Potassium 3.3 mmol/L (3.5-5.0)
[2022-07-14 05:58] LABS: Phosphorus 2.5 mg/dL (2.5-5.0)
[2022-07-14] MEDS ORDERED: Dextrose 50% Syringe 50 ml 25 GM/50 ML SYRINGE IV PUSH PRN (08:20)
[2022-07-14] MEDS ORDERED: Thiamine 100 MG/ML 2 ml VIAL 500 MG in NS 0.9% 250 ml 250 ML IV ONE (08:22)
[2022-07-14] MEDS ORDERED: D5LR 1000 ml BAG 1,000 ML IV SCH (09:00)
[2022-07-14] MEDS: Mometasone/Formoter 200/5 MDI INH SCH ×2 (09:09→19:17)
[2022-07-14] MEDS: Saliva Substitute (NF) 1 SPRAY BTL MT SCH ×3 (10:08→19:24)
[2022-07-14] MEDS: KCL 20 MEQ/100 ML IVPREMIX 20 MEQ/100 ML BAG IV SCH ×4 (11:20→20:50)
[2022-07-14 16:06] LABS: Hematocrit 31 % (35-47); Hemoglobin 10.1 g/dL (12.0-16.0); Mean Corpuscular HGB Conc 33 g/dL (31-36); Mean Corpuscular Hemoglobin 27 pg (27-31); Mean Corpuscular Volume 82 fL (80-97); Mean Platelet Volume 7.5 fL (7.4-10.4); Platelet Count 48 10^3/uL (150-450); Red Blood Count 3.71 10^6 /uL (3.70-4.87); Red Cell Distribution Width 17 % (10-15); White Blood Count 3.9 10^3/uL (3.5-10.8)
[2022-07-14] MEDS: Enoxaparin 40 MG/0.4 ML SYR SUBCUT SCH (20:50)
[2022-07-15] MEDS: Saliva Substitute (NF) 1 SPRAY BTL MT SCH ×6 (01:37→22:47)
[2022-07-15 06:55] LABS: Calcium 7.5 mg/dL (8.6-10.3); Potassium 3.5 mmol/L (3.5-5.0); eGFR CKD-EPI 101.2 (>60)
[2022-07-15 07:04] LABS: Hematocrit 29 % (35-47); Hemoglobin 9.6 g/dL (12.0-16.0); Mean Corpuscular HGB Conc 34 g/dL (31-36); Mean Corpuscular Hemoglobin 28 pg (27-31); Mean Corpuscular Volume 82 fL (80-97); Platelet Count 41 10^3/uL (150-450); Red Blood Count 3.47 10^6 /uL (3.70-4.87); Red Cell Distribution Width 16 % (10-15); White Blood Count 4.3 10^3/uL (3.5-10.8)
[2022-07-15] MEDS: Mometasone/Formoter 200/5 MDI INH SCH ×2 (07:41→18:55)
[2022-07-15] MEDS ORDERED: Potassium Chloride LIQUID 20 MEQ/15 ML LIQUID PO ONE (15:46)
[2022-07-15] MEDS ORDERED: Potassium Chlor 20 meq TAB.ER PO ONE (15:50)
[2022-07-15] MEDS ORDERED: Lactated Ringers 1000 ml BAG 1,000 ML IV SCH (16:00)
[2022-07-15 17:47] LABS: Hematocrit 29 % (35-47); Hemoglobin 9.7 g/dL (12.0-16.0); Mean Corpuscular HGB Conc 33 g/dL (31-36); Mean Corpuscular Hemoglobin 27 pg (27-31); Mean Corpuscular Volume 83 fL (80-97); Platelet Count 44 10^3/uL (150-450); Red Blood Count 3.54 10^6 /uL (3.70-4.87); Red Cell Distribution Width 17 % (10-15); White Blood Count 5.4 10^3/uL (3.5-10.8)
[2022-07-16] MEDS ORDERED: Dextrose 50% Syringe 50 ml 25 GM/50 ML SYRINGE IV PUSH PRN (02:30)
[2022-07-16 07:06] LABS: Hematocrit 29 % (35-47); Hemoglobin 9.9 g/dL (12.0-16.0); Mean Corpuscular HGB Conc 34 g/dL (31-36); Mean Corpuscular Hemoglobin 27 pg (27-31); Mean Corpuscular Volume 81 fL (80-97); Mean Platelet Volume 7.3 fL (7.4-10.4); Platelet Count 54 10^3/uL (150-450); Red Blood Count 3.61 10^6 /uL (3.70-4.87); Red Cell Distribution Width 18 % (10-15); White Blood Count 5.7 10^3/uL (3.5-10.8)
[2022-07-16] MEDS ORDERED: Potassium Chlor 20 meq TAB.ER PO ONE (07:09)
[2022-07-16 07:30] LABS: Calcium 7.6 mg/dL (8.6-10.3); Magnesium 1.8 mg/dL (1.9-2.7); Potassium 3.9 mmol/L (3.5-5.0); eGFR CKD-EPI 102.9 (>60)
[2022-07-16] MEDS: Mometasone/Formoter 200/5 MDI INH SCH ×2 (07:49→18:54)
[2022-07-16] MEDS ORDERED: Lactated Ringers 1000 ml BAG 1,000 ML IV SCH (08:00)
[2022-07-16] MEDS ORDERED: Magnesium Sulfate 2 gm BAG 2 GM/50 ML BAG IVPB ONE (10:28)
[2022-07-16] MEDS: Saliva Substitute (NF) 1 SPRAY BTL MT SCH ×5 (12:00→22:53)
[2022-07-16] MEDS: Nystatin TOP POWDER 15 GM BTL TOPICAL SCH (18:21)
[2022-07-17] MEDS: Nystatin TOP POWDER 15 GM BTL TOPICAL SCH ×4 (00:57→19:45)
[2022-07-17 06:28] LABS: Hematocrit 30 % (35-47); Hemoglobin 9.9 g/dL (12.0-16.0); Mean Corpuscular HGB Conc 34 g/dL (31-36); Mean Corpuscular Hemoglobin 27 pg (27-31); Mean Corpuscular Volume 80 fL (80-97); Platelet Count 72 10^3/uL (150-450); Red Blood Count 3.68 10^6 /uL (3.70-4.87); Red Cell Distribution Width 17 % (10-15); White Blood Count 2.8 10^3/uL (3.5-10.8)
[2022-07-17] MEDS: Saliva Substitute (NF) 1 SPRAY BTL MT SCH ×5 (06:40→22:05)
[2022-07-17 06:53] LABS: Calcium 7.7 mg/dL (8.6-10.3); Magnesium 2.3 mg/dL (1.9-2.7); Potassium 3.9 mmol/L (3.5-5.0); eGFR CKD-EPI 97.5 (>60)
[2022-07-17] MEDS: Mometasone/Formoter 200/5 MDI INH SCH ×2 (07:20→20:03)
[2022-07-17] MEDS ORDERED: Lactated Ringers 1000 ml BAG 1,000 ML IV SCH (11:18)
[2022-07-17] MEDS ORDERED: D5LR 1000 ml BAG 1,000 ML IV SCH (19:00)
[2022-07-17] MEDS: Enoxaparin 40 MG/0.4 ML SYR SUBCUT SCH ×2 (19:45→20:25)
[2022-07-18] MEDS: Saliva Substitute (NF) 1 SPRAY BTL MT SCH ×5 (06:04→22:42)
[2022-07-18 06:13] LABS: Hematocrit 30 % (35-47); Hemoglobin 9.9 g/dL (12.0-16.0); Mean Corpuscular HGB Conc 33 g/dL (31-36); Mean Corpuscular Hemoglobin 27 pg (27-31); Mean Corpuscular Volume 81 fL (80-97); Mean Platelet Volume 7.1 fL (7.4-10.4); Platelet Count 113 10^3/uL (150-450); Red Blood Count 3.73 10^6 /uL (3.70-4.87); Red Cell Distribution Width 17 % (10-15); White Blood Count 2.9 10^3/uL (3.5-10.8)
[2022-07-18 06:43] LABS: Anion Gap 8 mmol/L (2-11); Blood Urea Nitrogen 13 mg/dL (6-24); CO2 Carbon Dioxide 32 mmol/L (22-32); Calcium 7.6 mg/dL (8.6-10.3); Chloride 103 mmol/L (101-111); Glucose 97 mg/dL (70-100); Phosphorus 1.5 mg/dL (2.5-5.0); Potassium 3.8 mmol/L (3.5-5.0); Sodium 143 mmol/L (135-145); eGFR CKD-EPI 100.4 (>60)
[2022-07-18] MEDS: Mometasone/Formoter 200/5 MDI INH SCH ×2 (06:57→19:56)
[2022-07-18] MEDS ORDERED: Potassium Chlor 20 meq TAB.ER PO ONE (07:12)
[2022-07-18 08:18] LABS: ABS Eosinophils 0.1 10^3/ul (0-0.6); ABS Monocytes 0.3 10^3/ul (0-0.8); ABS Neutrophils 1.6 10^3/ul (1.5-7.7); Eosinophil % 1.8 %; Lymphocyte % 34.1 %; Nucleated Red Blood Cells % 0.2
[2022-07-18] MEDS ORDERED: Potassium Phosphate IV 15 MMOLE in NS 0.9% 250 ml 250 ML IVPB ONE (09:00)
[2022-07-18] MEDS: Nystatin TOP POWDER 15 GM BTL TOPICAL SCH ×3 (09:35→21:58)
[2022-07-18] MEDS ORDERED: Lactated Ringers 1000 ml BAG 1,000 ML IV SCH ×2 (10:00→16:01)
[2022-07-18] MEDS ORDERED: Iodixanol (CONTRAST) 320 MG/ML 100 ML SDV IV ONE (10:01)
[2022-07-18] MEDS: Potassium & Sodium Phos 250 mg = 1 PACKET PO SCH ×3 (10:29→21:58)
[2022-07-18] MEDS: Ondansetron 4 mg VIAL 2 MG/ML 2 ml VIAL IV PRN ×2 (12:21→23:18)
[2022-07-18 13:22] LABS: Folate > 20.00 ng/mL (5.90-24.80)
[2022-07-18] MEDS: Cefepime 2 GM in Dextrose 2 GM/50 ML BAG IV SCH (17:40)
[2022-07-18] MEDS: metroNIDAZOLE IV 500 MG/100ML 500 MG/100 ML BAG IVPB SCH (17:51)
[2022-07-18] MEDS: D5LR 1000 ml BAG 1,000 ML IV SCH (19:34)
[2022-07-18] MEDS: Enoxaparin 40 MG/0.4 ML SYR SUBCUT SCH (21:57)
[2022-07-19] MEDS: metroNIDAZOLE IV 500 MG/100ML 500 MG/100 ML BAG IVPB SCH ×3 (01:22→17:17)
[2022-07-19] MEDS: Cefepime 2 GM in Dextrose 2 GM/50 ML BAG IV SCH (05:32)
[2022-07-19] MEDS: Saliva Substitute (NF) 1 SPRAY BTL MT SCH ×4 (05:34→18:08)
[2022-07-19 05:47] LABS: Hematocrit 30 % (35-47); Hemoglobin 10.2 g/dL (12.0-16.0); Mean Corpuscular HGB Conc 35 g/dL (31-36); Mean Corpuscular Hemoglobin 28 pg (27-31); Mean Corpuscular Volume 81 fL (80-97); Platelet Count 175 10^3/uL (150-450); Red Blood Count 3.67 10^6 /uL (3.70-4.87); Red Cell Distribution Width 17 % (10-15); White Blood Count 4.6 10^3/uL (3.5-10.8)
[2022-07-19 06:37] LABS: Albumin 2.3 g/dL (3.2-5.2); Albumin/Globulin Ratio 0.9 (1-3); Calcium 7.5 mg/dL (8.6-10.3); Direct Bilirubin 0.2 mg/dL (0.03-0.18); Globulin 2.7 g/dL (2-4); Indirect Bilirubin 0.5 mg/dL (0.3-1.0); Phosphorus 3.4 mg/dL (2.5-5.0); Potassium 4.1 mmol/L (3.5-5.0); Total Bilirubin 0.7 mg/dL (0.2-1.0); eGFR CKD-EPI 82.7 (>60)
[2022-07-19] MEDS: Mometasone/Formoter 200/5 MDI INH SCH ×2 (07:26→20:30)
[2022-07-19] MEDS ORDERED: Pantoprazole VIAL 40 MG VIAL IV SCH (09:00)
[2022-07-19] MEDS: Famotidine IV 10 MG/ML 2 ml VIAL (20 mg) IV SLOW PU SCH (10:18)
[2022-07-19] MEDS: Nystatin TOP POWDER 15 GM BTL TOPICAL SCH ×3 (10:19→23:37)
[2022-07-19] MEDS: D5LR 1000 ml BAG 1,000 ML IV SCH (10:19)
[2022-07-19] MEDS ORDERED: TPN 24 HR with Dextrose 50% Water 500 ML, Amino Acid Infusion 10% 850 ML, Sterile Water... CENT\\PICC SCH (17:00)
[2022-07-19] MEDS: Cefepime 1 GM in Dextrose 1 GM/50 ML BAG IV SCH (17:17)
[2022-07-19] MEDS: Enoxaparin 40 MG/0.4 ML SYR SUBCUT SCH (21:15)
[2022-07-20] MEDS: Saliva Substitute (NF) 1 SPRAY BTL MT SCH ×6 (00:31→23:27)
[2022-07-20] MEDS: Enoxaparin 40 MG/0.4 ML SYR SUBCUT SCH ×3 (00:32→20:38)
[2022-07-20] MEDS: metroNIDAZOLE IV 500 MG/100ML 500 MG/100 ML BAG IVPB SCH ×3 (00:41→18:38)
[2022-07-20] MEDS ORDERED: NS 0.9% 250 ml 250 ML IV SCH (02:00)
[2022-07-20] MEDS: Cefepime 1 GM in Dextrose 1 GM/50 ML BAG IV SCH ×2 (05:18→17:53)
[2022-07-20 06:13] LABS: ABS Eosinophils 0.1 10^3/ul (0-0.6); ABS Monocytes 0.2 10^3/ul (0-0.8); ABS Neutrophils 3.4 10^3/ul (1.5-7.7); Eosinophil % 1.1 %; Hematocrit 26 % (35-47); Lymphocyte % 20.7 %; Mean Corpuscular HGB Conc 35 g/dL (31-36); Mean Corpuscular Hemoglobin 28 pg (27-31); Mean Corpuscular Volume 81 fL (80-97); Mean Platelet Volume 6.9 fL (7.4-10.4); Platelet Count 215 10^3/uL (150-450); Red Cell Distribution Width 17 % (10-15); White Blood Count 4.6 10^3/uL (3.5-10.8)
[2022-07-20 07:24] LABS: Albumin/Globulin Ratio 0.8 (1-3); Calcium 7.2 mg/dL (8.6-10.3); Globulin 2.4 g/dL (2-4); Magnesium 1.9 mg/dL (1.9-2.7); Phosphorus 2.9 mg/dL (2.5-5.0); Potassium 3.7 mmol/L (3.5-5.0); Total Bilirubin 0.4 mg/dL (0.2-1.0); Total Protein 4.4 g/dL (6.4-8.9); eGFR CKD-EPI 92.3 (>60)
[2022-07-20] MEDS: Mometasone/Formoter 200/5 MDI INH SCH ×2 (08:03→19:49)
[2022-07-20] MEDS: Famotidine IV 10 MG/ML 2 ml VIAL (20 mg) IV SLOW PU SCH (09:02)
[2022-07-20] MEDS: Nystatin TOP POWDER 15 GM BTL TOPICAL SCH ×3 (09:04→20:13)
[2022-07-20] MEDS ORDERED: Magnesium Sulfate 2 gm BAG 2 GM/50 ML BAG IVPB ONE (10:57)
[2022-07-20] MEDS ORDERED: Fluticasone/Vilanterol MDI(NF) 100/25 MDI INH SCH (12:00)
[2022-07-20] MEDS: KCL 20 MEQ/100 ML IVPREMIX 20 MEQ/100 ML BAG IV SCH ×2 (13:17→15:23)
[2022-07-20] MEDS ORDERED: TPN 24 HR with Dextrose 50% Water 500 ML, Amino Acid Infusion 10% 850 ML, Sterile Water... CENT\\PICC SCH (17:00)
[2022-07-21] MEDS: metroNIDAZOLE IV 500 MG/100ML 500 MG/100 ML BAG IVPB SCH ×3 (01:21→18:14)
[2022-07-21] MEDS: Cefepime 1 GM in Dextrose 1 GM/50 ML BAG IV SCH ×2 (05:46→17:37)
[2022-07-21] MEDS: Saliva Substitute (NF) 1 SPRAY BTL MT SCH ×5 (05:49→22:14)
[2022-07-21 06:55] LABS: Hematocrit 28 % (35-47); Hemoglobin 9.6 g/dL (12.0-16.0); Mean Corpuscular HGB Conc 34 g/dL (31-36); Mean Corpuscular Hemoglobin 27 pg (27-31); Mean Corpuscular Volume 81 fL (80-97); Platelet Count 285 10^3/uL (150-450); Red Cell Distribution Width 17 % (10-15); White Blood Count 6.9 10^3/uL (3.5-10.8)
[2022-07-21 07:05] LABS: Albumin 2.2 g/dL (3.2-5.2); Albumin/Globulin Ratio 0.8 (1-3); Calcium 7.4 mg/dL (8.6-10.3); Globulin 2.6 g/dL (2-4); Magnesium 2.4 mg/dL (1.9-2.7); Phosphorus 1.5 mg/dL (2.5-5.0); Total Bilirubin 0.4 mg/dL (0.2-1.0); Total Protein 4.8 g/dL (6.4-8.9); eGFR CKD-EPI 97.5 (>60)
[2022-07-21] MEDS ORDERED: Potassium Phosphate IV 15 MMOLE in NS 0.9% 250 ml 250 ML IVPB ONE (08:00)
[2022-07-21] MEDS: Mometasone/Formoter 200/5 MDI INH SCH ×2 (08:01→19:34)
[2022-07-21] MEDS: Famotidine IV 10 MG/ML 2 ml VIAL (20 mg) IV SLOW PU SCH (08:08)
[2022-07-21] MEDS: Nystatin TOP POWDER 15 GM BTL TOPICAL SCH ×3 (08:09→22:13)
[2022-07-21 08:10] LABS: Potassium 5.2 mmol/L (3.5-5.0)
[2022-07-21] MEDS ORDERED: Sodium Phosphate IV 15 MMOLE in NS 0.9% 250 ml 250 ML IV ONE (11:00)
[2022-07-21] MEDS ORDERED: TPN 24 HR with Dextrose 50% Water 500 ML, Amino Acid Infusion 10% 850 ML, Sterile Water... CENT\\PICC SCH (17:00)
[2022-07-21] MEDS ORDERED: Dextrose 50% Syringe 50 ml 25 GM/50 ML SYRINGE IV PUSH PRN (18:18)
[2022-07-21] MEDS: Ondansetron 4 mg VIAL 2 MG/ML 2 ml VIAL IV PRN (20:06)
[2022-07-21] MEDS: Enoxaparin 40 MG/0.4 ML SYR SUBCUT SCH (20:22)
[2022-07-22] MEDS: metroNIDAZOLE IV 500 MG/100ML 500 MG/100 ML BAG IVPB SCH ×4 (03:55→21:26)
[2022-07-22] MEDS ORDERED: Haloperidol 5 mg/ml SDV IV/IM 5 MG/ML AMP IV SLOW PU PRN (05:10)
[2022-07-22] MEDS: Cefepime 1 GM in Dextrose 1 GM/50 ML BAG IV SCH (05:52)
[2022-07-22 06:20] LABS: Hematocrit 28 % (35-47); Hemoglobin 9.7 g/dL (12.0-16.0); Mean Corpuscular HGB Conc 34 g/dL (31-36); Mean Corpuscular Hemoglobin 28 pg (27-31); Mean Corpuscular Volume 81 fL (80-97); Mean Platelet Volume 6.7 fL (7.4-10.4); Platelet Count 316 10^3/uL (150-450); Red Blood Count 3.49 10^6 /uL (3.70-4.87); Red Cell Distribution Width 17 % (10-15); White Blood Count 9.1 10^3/uL (3.5-10.8)
[2022-07-22] MEDS: Saliva Substitute (NF) 1 SPRAY BTL MT SCH ×5 (06:42→21:26)
[2022-07-22 06:56] LABS: Albumin 2.5 g/dL (3.2-5.2); Albumin/Globulin Ratio 0.9 (1-3); Calcium 7.7 mg/dL (8.6-10.3); Globulin 2.8 g/dL (2-4); Magnesium 2.4 mg/dL (1.9-2.7); Phosphorus 2.7 mg/dL (2.5-5.0); Total Bilirubin 0.4 mg/dL (0.2-1.0); Total Protein 5.3 g/dL (6.4-8.9); eGFR CKD-EPI 97.8 (>60)
[2022-07-22 06:59] LABS: Potassium 5.1 mmol/L (3.5-5.0)
[2022-07-22] MEDS: Mometasone/Formoter 200/5 MDI INH SCH ×3 (08:54→20:17)
[2022-07-22] MEDS: Famotidine IV 10 MG/ML 2 ml VIAL (20 mg) IV SLOW PU SCH (09:38)
[2022-07-22] MEDS: Nystatin TOP POWDER 15 GM BTL TOPICAL SCH ×3 (09:38→21:26)
[2022-07-22 12:00] LABS: Carcinoembryonic Antigen 17.8 ng/mL (0.1-5.0)
[2022-07-22] MEDS: Collagenase 250 units/gm OINT 1 tube TOPICAL SCH (16:29)
[2022-07-22] MEDS ORDERED: TPN CENTRAL STANDARD BASE A CENT\\PICC SCH (17:00)
[2022-07-22] MEDS: Morphine 2 MG/ML SYRINGE IV PRN (18:00)
[2022-07-22] MEDS: Enoxaparin 40 MG/0.4 ML SYR SUBCUT SCH (21:04)
[2022-07-22 22:28] LABS: Hematocrit 29 % (35-47); Hemoglobin 9.5 g/dL (12.0-16.0); Mean Corpuscular HGB Conc 33 g/dL (31-36); Mean Corpuscular Hemoglobin 27 pg (27-31); Mean Corpuscular Volume 83 fL (80-97); Mean Platelet Volume 6.9 fL (7.4-10.4); Platelet Count 305 10^3/uL (150-450); Red Blood Count 3.46 10^6 /uL (3.70-4.87); Red Cell Distribution Width 17 % (10-15); White Blood Count 8.7 10^3/uL (3.5-10.8)
[2022-07-22 23:07] LABS: Blood Urea Nitrogen 23 mg/dL (6-24); CO2 Carbon Dioxide 19 mmol/L (22-32); Calcium 7.6 mg/dL (8.6-10.3); Chloride 110 mmol/L (101-111); Glucose 140 mg/dL (70-100); Magnesium 2.4 mg/dL (1.9-2.7); Sodium 136 mmol/L (135-145); eGFR CKD-EPI 98.1 (>60)
[2022-07-22 23:17] LABS: Anion Gap 7 mmol/L (2-11)
[2022-07-23] MEDS: Morphine 2 MG/ML SYRINGE IV PRN
[2022-07-23 01:39] LABS: ABS Lymphocytes 0.9 10^3/ul (1.0-4.8); ABS Monocytes 0.4 10^3/ul (0-0.8); ABS Neutrophils 7.3 10^3/ul (1.5-7.7); Eosinophil % 0.4 %; Lymphocyte % 10.7 %; Nucleated Red Blood Cells % 0.1
[2022-07-23 01:50] LABS: Phosphorus 2.9 mg/dL (2.5-5.0)
[2022-07-23 01:51] LABS: Potassium Redraw 5.4 mmol/L (3.5-5.0)
[2022-07-23 04:44] LABS: PCO2 Arterial 28 mmHg (35-45); PO2 Arterial 75 mmHg (80-100)
[2022-07-23] MEDS: metroNIDAZOLE IV 500 MG/100ML 500 MG/100 ML BAG IVPB SCH ×3 (05:38→21:38)
[2022-07-23] MEDS: Saliva Substitute (NF) 1 SPRAY BTL MT SCH ×5 (06:04→21:15)
[2022-07-23 06:25] LABS: Hematocrit 24 % (35-47); Mean Corpuscular HGB Conc 33 g/dL (31-36); Mean Corpuscular Hemoglobin 27 pg (27-31); Mean Corpuscular Volume 82 fL (80-97); Mean Platelet Volume 6.9 fL (7.4-10.4); Platelet Count 257 10^3/uL (150-450); Red Blood Count 2.94 10^6 /uL (3.70-4.87); Red Cell Distribution Width 17 % (10-15); White Blood Count 7.4 10^3/uL (3.5-10.8)
[2022-07-23 06:44] LABS: Albumin 2.2 g/dL (3.2-5.2); Albumin/Globulin Ratio 0.8 (1-3); Calcium 7.3 mg/dL (8.6-10.3); Globulin 2.6 g/dL (2-4); Magnesium 2.2 mg/dL (1.9-2.7); Phosphorus 2.8 mg/dL (2.5-5.0); Total Bilirubin 0.4 mg/dL (0.2-1.0); Total Protein 4.8 g/dL (6.4-8.9); eGFR CKD-EPI 97.5 (>60)
[2022-07-23 06:48] LABS: Potassium 5.2 mmol/L (3.5-5.0)
[2022-07-23] MEDS: Mometasone/Formoter 200/5 MDI INH SCH ×2 (08:26→19:40)
[2022-07-23] MEDS ORDERED: NS 0.9% 250 ml 250 ML IV ONE (09:30)
[2022-07-23] MEDS: Famotidine IV 10 MG/ML 2 ml VIAL (20 mg) IV SLOW PU SCH (11:07)
[2022-07-23] MEDS: Nystatin TOP POWDER 15 GM BTL TOPICAL SCH ×3 (11:07→19:47)
[2022-07-23] MEDS: Collagenase 250 units/gm OINT 1 tube TOPICAL SCH (11:08)
[2022-07-23 16:05] LABS: ABS Monocytes 0.4 10^3/ul (0-0.8); ABS Neutrophils 5.9 10^3/ul (1.5-7.7); Eosinophil % 0.2 %; Lymphocyte % 13.2 %
[2022-07-23] MEDS: TPN CENTRAL STANDARD BASE A CENT\\PICC SCH (18:02)
[2022-07-23] MEDS: Enoxaparin 40 MG/0.4 ML SYR SUBCUT SCH (19:46)
[2022-07-23] MEDS: Vancomycin- *ENEMA* PR 500MG PR SCH (22:58)
[2022-07-24] MEDS: Vancomycin- *ENEMA* PR 500MG PR SCH ×3 (03:39→17:26)
[2022-07-24] MEDS: metroNIDAZOLE IV 500 MG/100ML 500 MG/100 ML BAG IVPB SCH ×2 (03:40→12:09)
[2022-07-24] MEDS: Saliva Substitute (NF) 1 SPRAY BTL MT SCH ×2 (05:39→10:57)
[2022-07-24 05:51] LABS: Albumin 2.3 g/dL (3.2-5.2); Albumin/Globulin Ratio 0.8 (1-3); Calcium 7.4 mg/dL (8.6-10.3); Globulin 2.8 g/dL (2-4); Magnesium 2.2 mg/dL (1.9-2.7); Phosphorus 2.7 mg/dL (2.5-5.0); Potassium 4.7 mmol/L (3.5-5.0); Total Bilirubin 0.5 mg/dL (0.2-1.0); Total Protein 5.1 g/dL (6.4-8.9); eGFR CKD-EPI 102.5 (>60)
[2022-07-24] MEDS: Mometasone/Formoter 200/5 MDI INH SCH ×2 (07:43→20:30)
[2022-07-24] MEDS: Famotidine IV 10 MG/ML 2 ml VIAL (20 mg) IV SLOW PU SCH (08:02)
[2022-07-24] MEDS: Nystatin TOP POWDER 15 GM BTL TOPICAL SCH ×3 (08:05→20:09)
[2022-07-24] MEDS: Collagenase 250 units/gm OINT 1 tube TOPICAL SCH (10:36)
[2022-07-24 11:14] LABS: ABS Lymphocytes 0.5 10^3/ul (1.0-4.8); ABS Monocytes 0.3 10^3/ul (0-0.8); ABS Neutrophils 6.8 10^3/ul (1.5-7.7); Eosinophil % 0.2 %; Hematocrit 24 % (35-47); Lymphocyte % 6.3 %; Mean Corpuscular HGB Conc 33 g/dL (31-36); Mean Corpuscular Hemoglobin 28 pg (27-31); Mean Corpuscular Volume 83 fL (80-97); Mean Platelet Volume 7.3 fL (7.4-10.4); Platelet Count 259 10^3/uL (150-450); Red Cell Distribution Width 18 % (10-15); White Blood Count 7.7 10^3/uL (3.5-10.8)
[2022-07-24] MEDS: Oral Rinse (Biotene)(NF) 237 ML or 473 ML ORAL RINSE BTL MT SCH ×2 (16:01→19:10)
[2022-07-24] MEDS ORDERED: LORazepam 2 mg VIAL 1 ml IV PUSH PRN (17:23)
[2022-07-24] MEDS ORDERED: Lorazepam PYXIS KEY PRN (17:23)
[2022-07-24] MEDS: TPN CENTRAL STANDARD BASE A CENT\\PICC SCH (18:32)
[2022-07-24 21:13] VITALS: BP 136/77
[2022-07-25] MEDS: Oral Rinse (Biotene)(NF) 237 ML or 473 ML ORAL RINSE BTL MT SCH ×4 (00:21→14:05)
[2022-07-25] MEDS: Morphine 2 MG/ML SYRINGE IV PRN (01:08)
[2022-07-25] MEDS ORDERED: Morphine 2 MG/ML SYRINGE IV PRN (01:35)
[2022-07-25] MEDS: Mometasone/Formoter 200/5 MDI INH SCH (07:23)
[2022-07-25] MEDS: Collagenase 250 units/gm OINT 1 tube TOPICAL SCH (10:58)
[2022-07-25] MEDS: Nystatin TOP POWDER 15 GM BTL TOPICAL SCH ×2 (10:59→15:39)
[2022-07-25] MEDS ORDERED: Atropine 1% (ORAL/SL) 15 ML BTL SL PRN (12:33)
== END 2022-07-25 16:45 | disposition expired | DRG 52 ==
LOC: EDHOLD 11:29 → ED 11:29 → MEDTELE 20:22 → SUATTDRO 07-14 11:07 → MED 07-22 01:15
PROVIDERS: ADMIT Internal Medicine; ATTEND Internal Medicine